=== PATIENT | male | born 1960 | race American Indian/Alaskan Native ===

== ENCOUNTER 2016-11-12 12:32 | Inpatient (IN) | payer BC ==
[2016-11-12 13:31] LABS: Anion Gap 22 mmol/L; BUN/Creatinine Ratio 25.71; Blood Urea Nitrogen 18 mg/dL (9-20); Calcium 9.4 mg/dL (8.4-10.2); Carbon Dioxide 19 mmol/L (22-30); Chloride 103.7 mmol/L (98-107); Glucose 97 mg/dL (75-100); Potassium 3.7 mmol/L (3.6-5.0); Sodium 141 mmol/L (137-145)
[2016-11-12 13:35] LABS: Basophils % (Auto) 0.3 % (0.0-1.8); Eosinophils % (Auto) 0.3 % (0.0-4.3); Hematocrit 47.3 % (35.5-45.6); Hemoglobin 15.6 gm/dl (11.8-15.2); Mean Corpuscular HGB Conc 33 % (32-34); Mean Corpuscular Hemoglobin 31 pg (28-32); Mean Corpuscular Volume 93 fl (84-94); Platelet Count 220 K/mm3 (140-440); Red Blood Count 5.11 M/mm3 (3.65-5.03); Red Cell Distribution Width 14.9 % (13.2-15.2); White Blood Count 5.9 K/mm3 (4.5-11.0)
[2016-11-12 16:42] LABS: Alanine Aminotransferase 15 units/L (7-56); Albumin 4.2 g/dL (3.9-5); Albumin/Globulin Ratio 1.2 %; Alkaline Phosphatase 72 units/L (35-129); Total Protein 7.7 g/dL (6.3-8.2)
[2016-11-12 16:49] LABS: Bilirubin,Direct < 0.2 mg/dL (0-0.2); Bilirubin,Indirect 0.5 mg/dL
[2016-11-12] MEDS ORDERED: MORPHINE IV ONE (17:28)
[2016-11-12] MEDS ORDERED: NITRO-BID 2% TP ONE (17:28)
[2016-11-12] MEDS ORDERED: ZOFRAN IV ONE (17:28)
[2016-11-12] MEDS ORDERED: ASPIRIN PO ONE (17:28)
--- NOTE | 2016-11-12 17:38 | Emergency Department Report ---
HPI - General Chief Complaint: Chest Pain Time Seen by Provider: 11/12/16 17:21 - HPI HPI: Room 3 The patient is a 56-year-old male presenting with a chief complaint of chest pain. Patient states today he developed substernal chest pain described as a pressure in nature. Patient admits to diaphoresis with this chest pain but denies shortness of breath or nausea/vomiting. The patient currently gives his pain a score of 7/10. Patient states his last stress test occurred approximately 1.5 years ago but he has never had a cardiac catheterization Location: Substernal Duration: 1 day Quality: Pressure Severity: 7/10 Modifying factors: [see above] Context: [see above] Mode of transportation: [not driving] ED Past Medical Hx - Past Medical History Previous Medical History?: Yes Hx Hypertension: Yes - Surgical History Past Surgical History?: No - Family History Family history: no significant - Social History Smoking Status: Former Smoker (none 20 years) Substance Use Type: None (denies illicit drug use), Alcohol (occasional) - Medications Home Medications: Home Medications Medication Instructions Recorded Confirmed Last Taken Type No Known Home Medications [No 11/12/16 11/12/16 Unknown History Reported Home Medications] ED Review of Systems ROS: Stated complaint: CHEST PAIN Other details as noted in HPI Comment: All other systems reviewed and negative Constitutional: diaphoresis. denies: chills, fever Eyes: denies: eye pain, eye discharge, vision change ENT: denies: ear pain, throat pain Respiratory: denies: cough, shortness of breath, wheezing Cardiovascular: chest pain Endocrine: no symptoms reported Gastrointestinal: denies: abdominal pain, nausea, diarrhea Genitourinary: denies: urgency, dysuria Musculoskeletal: denies: back pain, joint swelling, arthralgia Skin: denies: rash, lesions Neurological: denies: headache, weakness, paresthesias Psychiatric: denies: anxiety, depression Hematological/Lymphatic: denies: easy bleeding, easy bruising Physical Exam - Physical Exam Vital Signs: Vital Signs 11/12/16 11/12/16 11/12/16 12:48 16:02 16:10 Temperature 98 F Pulse Rate 68 65 59 L Respiratory 18 11 L 13 Rate Blood Pressure 168/102 141/95 Blood Pressure [Right] O2 Sat by Pulse 100 98 98 Oximetry 11/12/16 11/12/16 11/12/16 16:13 16:16 16:20 Temperature Pulse Rate 65 65 Respiratory 18 18 20 Rate Blood Pressure 141/95 Blood Pressure 141/95 [Right] O2 Sat by Pulse 100 100 98 Oximetry 11/12/16 11/12/16 11/12/16 16:30 16:40 16:50 Temperature Pulse Rate 62 61 59 L Respiratory 22 19 22 Rate Blood Pressure 141/95 141/95 141/95 Blood Pressure [Right] O2 Sat by Pulse 96 97 96 Oximetry 11/12/16 11/12/16 11/12/16 17:00 17:10 17:20 Temperature Pulse Rate 68 75 82 Respiratory 18 24 17 Rate Blood Pressure 155/106 155/106 155/106 Blood Pressure [Right] O2 Sat by Pulse 94 99 100 Oximetry Physical Exam: GENERAL: The patient is well-developed well-nourished male lying on stretcher not appearing to be in acute distress. [] HEENT: Normocephalic. Atraumatic. Extraocular motions are intact. Patient has moist mucous membranes. NECK: Supple. Trachea midline CHEST/LUNGS: Clear to auscultation. There is no respiratory distress noted. HEART/CARDIOVASCULAR: Regular. There is no tachycardia. There is no gallop rub or murmur. ABDOMEN: Abdomen is soft, nontender. Patient has normal bowel sounds. There is no abdominal distention. SKIN: There is no rash. There is no edema. There is no diaphoresis. NEURO: The patient is awake, alert, and oriented. The patient is cooperative. The patient has normal speech MUSCULOSKELETAL: There is no evidence of acute injury. ED Course Vital Signs 11/12/16 11/12/16 11/12/16 12:48 16:02 16:10 Temperature 98 F Pulse Rate 68 65 59 L Respiratory 18 11 L 13 Rate Blood Pressure 168/102 141/95 Blood Pressure [Right] O2 Sat by Pulse 100 98 98 Oximetry 11/12/16 11/12/16 11/12/16 16:13 16:16 16:20 Temperature Pulse Rate 65 65 Respiratory 18 18 20 Rate Blood Pressure 141/95 Blood Pressure 141/95 [Right] O2 Sat by Pulse 100 100 98 Oximetry 11/12/16 11/12/16 11/12/16 16:30 16:40 16:50 Temperature Pulse Rate 62 61 59 L Respiratory 22 19 22 Rate Blood Pressure 141/95 141/95 141/95 Blood Pressure [Right] O2 Sat by Pulse 96 97 96 Oximetry 11/12/16 11/12/16 11/12/16 17:00 17:10 17:20 Temperature Pulse Rate 68 75 82 Respiratory 18 24 17 Rate Blood Pressure 155/106 155/106 155/106 Blood Pressure [Right] O2 Sat by Pulse 94 99 100 Oximetry ED Medical Decision Making - Lab Data Result diagrams: 11/12/16 13:00 11/12/16 13:00 Laboratory Tests 11/12/16 11/12/16 11/12/16 13:00 13:00 15:29 WBC 5.9 RBC 5.11 H Hgb 15.6 H Hct 47.3 H MCV 93 MCH 31 MCHC 33 RDW 14.9 Plt Count 220 Lymph % (Auto) 41.4 H [place] % (Auto) 11.2 H Eos % (Auto) 0.3 Baso % (Auto) 0.3 Lymph # 2.4 [place] # 0.7 Eos # 0.0 Baso # 0.0 Seg Neutrophils % 46.8 Seg Neutrophils # 2.8 Sodium 141 Potassium 3.7 Chloride 103.7 Carbon Dioxide 19 L Anion Gap 22 BUN 18 Creatinine 0.7 L Estimated GFR > 60 BUN/Creatinine Ratio 25.71 Glucose 97 Calcium 9.4 Total Bilirubin Direct Bilirubin Indirect Bilirubin AST ALT Alkaline Phosphatase Troponin T < 0.010 < 0.010 Total Protein Albumin Albumin/Globulin Ratio 11/12/16 15:29 WBC RBC Hgb Hct MCV MCH MCHC RDW Plt Count Lymph % (Auto) [place] % (Auto) Eos % (Auto) Baso % (Auto) Lymph # [place] # Eos # Baso # Seg Neutrophils % Seg Neutrophils # Sodium Potassium Chloride Carbon Dioxide Anion Gap BUN Creatinine Estimated GFR BUN/Creatinine Ratio Glucose Calcium Total Bilirubin 0.70 Direct Bilirubin < 0.2 Indirect Bilirubin 0.5 AST 16 ALT 15 Alkaline Phosphatase 72 Troponin T Total Protein 7.7 Albumin 4.2 Albumin/Globulin Ratio 1.2 - EKG Data -: EKG Interpreted by Me EKG shows normal: sinus rhythm Rate: normal - EKG Data When compared to previous EKG there are: previous EKG unavailable Interpretation: nonspecific ST-T wave you (ST depressions in leads V4, V5, V6) - Radiology Data Radiology results: image reviewed (chest x-ray) interpreted by me: Chest x-ray-no focal infiltrates, no pneumothorax - Differential Diagnosis ACS, pericarditis, GERD Critical care attestation.: If time is entered above; I have spent that time in minutes in the direct care of this critically ill patient, excluding procedure time. ED Disposition Clinical Impression: Chest pain Disposition: OP ADMITTED IP TO THIS HOSP Is pt being admited?: Yes Does the pt Need Aspirin: Yes Condition: Fair Instructions: Chest Pain (ED) Referrals: PRIMARY CARE,MD [Primary Care Provider] - 3-5 Days Time of Disposition: 18:09 (hospitalist notified)
[2016-11-12] MEDS ORDERED: MILK OF MAGNESIA PO PRN (18:44)
[2016-11-12] MEDS ORDERED: PERCOCET 5/325 PO PRN (18:44)
[2016-11-12] MEDS ORDERED: DULCOLAX PR PRN (18:44)
[2016-11-12] MEDS ORDERED: DILAUDID IV PRN (18:44)
[2016-11-12] MEDS ORDERED: TYLENOL PO PRN (18:44)
[2016-11-12] MEDS ORDERED: ZOFRAN IV PRN (18:44)
--- NOTE | 2016-11-12 18:44 | Event Note ---
Date: 11/12/16 See H/p in reports
[2016-11-12] MEDS ORDERED: SODIUM CHLORIDE FLUSH SYRINGE 10 ML IV PRN (18:47)
[2016-11-12] MEDS ORDERED: D5NS 1,000 ML IV SCH (19:00)
[2016-11-12] MEDS: COZAAR PO SCH (19:04)
[2016-11-12 20:15] LABS: Creatine Kinase MB 1.6 ng/mL (0.0-4.0)
[2016-11-12 21:32] LABS: Creatine Kinase MB 1.4 ng/mL (0.0-4.0)
[2016-11-12 21:33] LABS: Creatine Kinase 116 units/L (55-170)
--- NOTE | 2016-11-12 22:31 | Admit Criteria Form ---
Admission Criteria Documentation: CARDIOLOGY GRG Clinical Indications for Admission to Inpatient Care ( Place 'X' for any and all applicable criteria): Hospital admission is needed for appropriate care of the patient because of ANY ONE of the following (1): [ ] I. Hemodynamic instability as indicated by ALL of the following (1)(2)(3) (4)(5) [ ]a) Vital signs or other findings not as expected for chronic patient condition or baseline [ ]b) Instability indicated by ANY ONE of the following: [ ]i) Hypotension [ ]ii) Symptomatic Tachycardia unresponsive to treatment ( e.g., analgesia, fluids, sedation as indicated) [ ]iii) Inadequate perfusion indicated by ANY ONE of the following: [ ] 1) Lactic acidosis (> 2 mmol/L) [ ] 2) New abnormal capillary refill (> 3 seconds) [ ] 3) Reduced urine output [ ] 4) New altered mental status [ ]iv) Orthostatic vital sign changes unresponsive to treatment (e.g., fluids) [ ]v) IV inotropic or vasopressor medication required to maintain adequate blood pressure or perfusion [ ] II. Severe heart failure as indicated by ANY ONE of the following(17)(18) [ ]a) Respiratory distress [ ]b) Hypotension [ ]c) Anasarca (refractory to outpatient therapy) [ ]d) Cardiac arrhythmias of immediate concern [ ]e) Myocardial ischemia [ ] III. Cardiac arrhythmias or findings of immediate concern indicated by ANY ONE of the following (19)(20): [ ] a) Heart rhythms that are inherently dangerous or unstable indicated by ANY ONE of the following (21)(22)(23): [ ] i) Resuscitated ventricular fibrillation or cardiac arrest [ ] ii) Ventricular escape rhythm [ ] iii) Sustained ventricular tachycardia (30 seconds or more of ventricular rhythm at greater than 100 beats per minute) [ ] iv) Nonsustained ventricular tachycardia and ANY ONE of the following: [ ] 1) Suspected cardiac ischemia as cause or consequence of ventricular tachycardia [ ] 2) In setting of acute myocarditis [ ] b) Unstable cardiac conduction defects indicated by ANY ONE of the following(23)(24)(25) [ ] i) Type II second-degree atrioventricular block [ ]ii) Third-degree atrioventricular block [ ]iii) New-onset left bundle branch block with suspected myocardial ischemia [ ]c) Any heart rhythm and ANY ONE of the following (21)(22)(26)(27) (28) [ ] i) Continuous long-term ECG monitoring needed (e.g., initiation of drug requiring monitoring for more than 24 hours) [ ] ii) Patient has automatic implanted cardioverter defibrillator that is repeatedly firing, malfunctioning, or in need of immediate adjustment of settings beyond the scope of ambulatory or observation care [ ]d) Heart rhythms of concern due to ANY ONE of the following: [ ] i) Hypotension [ ] ii) Respiratory distress [ ] iii) Association with other significant symptoms (e.g., bradycardia with syncope or ongoing dizziness, supraventricular tachycardia with chest pain (14)(15)(17) [ ] IV. Monitoring for cardiac contusion beyond the scope of observation care needed [A](30)(31)(32) [ ] V. Surgical or device complication (e.g., valve replacement complication , pacemaker dysfunction) (35)(41)(44)(45)(46) [ ] . Inpatient palliative care needed. [B](49) Also use Inpatient Palliative Care Criteria [ ] VII. Nonbacterial thrombotic (marantic) endocarditis (36)(43)(47)(48) [ X] VIII. Cardiology condition, symptom, or finding for which emergency and observation care has failed or are not considered appropriate. [ ] IX. Acute valvular disease requiring inpatient as indicated by ANY ONE of the following (41) [ ]a) Acute valvular regurgitation (42) [ ]b) Noninfectious valvulitis (43) [ ]c) Obstructive valve thrombosis [ ]d) Paravalvular leak [ ]e) Other significant valvular disorder remaining after emergency or observation level of care (as appropriate) [ ]X. Pericardial disease requiring inpatient treatment as indicated by ANY ONE of the following (33)(34)(35)(36)(37) [ ]a) Suspected tamponade (38)(39)(40) [ ]b) Hemopericardium [ ]c) Other significant pericardial disorder remaining after emergency or observation level of care (as appropriate) [ ] XI. Cardiac ischemia beyond scope of emergency and observation care. [ ] XII. Hypertension requiring inpatient treatment as indicated by ANY ONE of the following (6)(7)(8) [ ]a) SBP greater than 220 mm Hg or DBP greater than 120 mmHg despite treatment [ ]b) SBP greater than 140 mm Hg or DBP greater than 100 mm Hg with evidence of acute end organ damage as indicated by ANY ONE of the following [ ] i) Altered mental status [ ] ii) Acute renal failure as indicated by new onset of ANY ONE of the following (9)(10)(11)(12)(13) [ ]1) 3-fold rise in serum creatinine from baseline [ ]2) Serum creatinine greater than 4 mg/dL ( 354 micromoles/L) with acute rise greater than 0.5 mg/dL (44.2 micromoles/L) [ ]3) Reduction of more than 75% in estimated glomerular filtration rate from baseline [ ]4) Estimated glomerular filtration rate less than 35 mL/min/1.73m2 (0.59 mL/sec/1.73m2) in child up to 18 years of age [ ]5) Cessation of urine output indicated by ALL of the following [ ]A. Adequate volume status [ ]B. Inadequate urine output as indicated by ANY ONE of the following [ ]a. Urine output less than 0.3 mL/kg/hr for 24 hours [ ]b. Anuria (urine output less than 0.1 mL/kg/hr) for 12 hours [ ] iii) Aortic dissection [ ] iv) Myocardial Ischemia [ ] v) Left ventricular heart failure [ ]vi) Retinal Hemorrhage [ ]vii) Other significant finding [ ]c) Hypertension in child requiring inpatient treatment as indicated by ALL of the following(14)(15)(16) [ ] i) Outpatient treatment not effective, not available, or not appropriate [ ]ii) SBP or DBP greater than 95th percentile for age [ ]iii) Evidence of acute end organ damage as indicated by ANY ONE of the following [ ]1) Altered mental status [ ]2) Acute renal failure as indicated by new onset of ANY ONE of the following(9)(10)(11)(12)(13) [ ]A. 3-fold rise in serum creatinine from baseline [ ]B. Serum creatinine greater than 4 mg/dL (354 micromoles/L) with acute rise greater than 0.5 mg/dL (44.2 micromoles/L) [ ]C. Reduction of more than 75% in estimated glomerular filtration rate from baseline [ ]D. Estimated glomerular filtration rate less than 35 mL/min/1.73m2 (0.59 mL/sec/1.73m2) in child up to 18 years of age [ ]E. Cessation of urine output indicated by ALL of the following [ ]a. Adequate volume status [ ]b. Inadequate urine output as indicated by ANY ONE of the following [ ]i) Urine output less than 0.3 mL/kg/hr for 24 hours [ ]ii) Anuria ( urine output less than 0.1 mL/kg/hr) for 12 hours [ ]3) Severe headache [ ]4) Visual disturbance [ ]5) Retinal hemorrhage [ ]6) Other significant finding [ ]XIII. Complications of transplanted heart indicated by ANY ONE of the following(61): [ ]a) Acute graft rejection requiring inpatient management (eg, intravenous immunosuppression)(62)(63) [ ]b) Acute graft heart failure indicated by ANY ONE of the following(64): [ ]i) Hemodynamic instability [ ]ii) Cardiac arrhythmias of immediate concern [ ]iii) Pulmonary edema that is very severe (eg, mechanical ventilation needed, imminent or likely, need for 100% oxygen to keep oxygen saturation above 90%) [ ]iv) Pulmonary edema that is persistent as indicated by ALL of the following: [ ]1) New need for oxygen therapy to keep oxygen saturation above 90% (or increased FiO2 need from baseline) [ ]2) Has not improved sufficiently with emergency department or observation care IV diuretics or other heart failure treatments[E] [ ]v) Altered mental status that is severe or persistent [ ]vi) Increased creatinine (new on laboratory test) with reduction of more than 50% in estimated glomerular filtration rate from baseline [ ]vii) Progressively (ongoing) rising creatinine (known from past laboratory test) with reduction of more than 25% in estimated glomerular filtration rate from baseline [ ]viii) Acute renal failure [ ]ix) Acute peripheral ischemia (eg, examination shows pulseless, cool, mottled, or cyanotic extremity) [ ]x) Pulmonary artery catheter monitoring needed [ ]xi) Other sign or symptom of heart failure requiring inpatient treatment (ie, too severe or not responsive to outpatient and observation care treatment) [ ]c) Infection requiring inpatient management (eg, Hemodynamic instability, need for intravenous antimicrobial treatment)(66)(67)(68)(69)(70) [ ]d) Cardiac allograft vasculopathy requiring inpatient management ( eg evidence of cardiac ischemia)(71) [ ]e) Other complication of transplanted heart (eg, stroke, severe pulmonary hypertension, severe valvular dysfunction) requiring inpatient management(72) The original [facility] [employer] content created by [facility] [employer] has been revised. The portions of the content which have been revised are identified through the use of italic text or in bold, and [facility] has neither reviewed nor approved the modified material. All other unmodified content is copyright [facility] [employer]. Please see references footnoted in the original [facility] [employer] edition 2016 Admission Criteria Met: Yes
[2016-11-13 02:00] LABS: Creatine Kinase MB 1.5 ng/mL (0.0-4.0)
[2016-11-13 02:03] LABS: Creatine Kinase 110 units/L (55-170)
[2016-11-13 05:38] LABS: Basophils % (Auto) 0.2 % (0.0-1.8); Eosinophils % (Auto) 1.4 % (0.0-4.3); Hematocrit 40.8 % (35.5-45.6); Hemoglobin 13.5 gm/dl (11.8-15.2); Mean Corpuscular HGB Conc 33 % (32-34); Mean Corpuscular Hemoglobin 31 pg (28-32); Mean Corpuscular Volume 93 fl (84-94); Platelet Count 192 K/mm3 (140-440); Red Blood Count 4.37 M/mm3 (3.65-5.03); Red Cell Distribution Width 15.1 % (13.2-15.2); White Blood Count 4.8 K/mm3 (4.5-11.0)
[2016-11-13 05:50] LABS: Alanine Aminotransferase 13 units/L (7-56); Albumin 3.3 g/dL (3.9-5); Albumin/Globulin Ratio 1.1 %; Alkaline Phosphatase 70 units/L (35-129); Anion Gap 19 mmol/L; Blood Urea Nitrogen 18 mg/dL (9-20); Calcium 8.7 mg/dL (8.4-10.2); Carbon Dioxide 23 mmol/L (22-30); Chloride 102.3 mmol/L (98-107); Glucose 108 mg/dL (75-100); Potassium 3.5 mmol/L (3.6-5.0); Sodium 141 mmol/L (137-145); Total Protein 6.2 g/dL (6.3-8.2)
--- NOTE | 2016-11-13 06:33 | History and Physical Report ---
CHIEF COMPLAINT: Left-sided chest pain for 1 day. HISTORY OF PRESENT ILLNESS: A 56-year-old male comes in for left-sided chest pain, substernal chest pain. Pain is about 7/10. No radiation. Denies any shortness of breath, nausea, vomiting, or diaphoresis. He had a stress test about 1-1/2 years ago, now had a cardiac cath. Sharp in nature. Severity is 7/10. Occasionally pressure like sensation. No exacerbating or relieving factors. PAST MEDICAL HISTORY: Significant for hypertension. PAST SURGICAL HISTORY: None. FAMILY HISTORY: Hypertension. SOCIAL HISTORY: Former smoker, did not smoke for the last 20 years. Alcohol occasionally. No drugs. CURRENT MEDICATIONS: None. REVIEW OF SYSTEMS: Other than the left-sided chest pain, review of systems is negative. A 14-point review of systems is done. ____ are negative other than the left-sided chest pain. PHYSICAL EXAMINATION: GENERAL: Middle-aged male, cooperative during examination. VITAL SIGNS: Temperature is 98, pulse is 68, respiratory rate is 19, and blood pressure is 168/102. HEENT: Unremarkable. Pupils are equal and reactive. NECK: Supple, no lymphadenopathy, no thyromegaly. LUNGS: Clear to auscultation and percussion. Good air entry. CARDIOVASCULAR: S1, S2 heard. No gallop, no murmur, and no rub. Apical impulse in left fifth intercostal space and midclavicular line. ABDOMEN: Soft and benign. No hepatosplenomegaly. No guarding, no rigidity. Hernial orifices are normal. EXTREMITIES: Good pedal pulses. No pedal edema. CENTRAL NERVOUS SYSTEM: Alert and oriented x 4, nonfocal exam. SKIN: Normal. LABORATORY DATA: White count is 5900, hemoglobin is 15.6, hematocrit is 47.3, and platelet count is 220,000. Sodium is 141, potassium is 3.7, chloride is 103, bicarbonate is 19, BUN and creatinine are 18 and 0.7, and glucose is 97. IMAGING: EKG shows normal sinus rhythm, nonspecific ST-T wave changes and ST depression in lead V4, V5, and V6. Chest x-ray, no focal infiltrates. ASSESSMENT AND PLAN: 1. Acute coronary syndrome, chest pain protocol. Get serial cardiac enzymes and rule out ischemia. Lexiscan in the morning with ____, which is application support technician. 2. Hypertension, uncontrolled. The patient is not on any medications. Losartan 100 mg daily added. The patient was discharged on losartan 100 mg daily. 3. Deep venous thrombosis prophylaxis, Lovenox 40 mg subcutaneously daily. JOB# [id number] VSM/NTS
[2016-11-13] MEDS ORDERED: LEXISCAN IV ONE ×2 (07:59→08:08)
[2016-11-13 08:43] VITALS: BP 131/74
--- NOTE | 2016-11-13 08:43 | XRay Report ---
AP CHEST: HISTORY: chest pain AP view of the chest demonstrates a normal mediastinal and cardiac contour with clear lungs and normal bony and soft tissue structures. IMPRESSION: Unremarkable AP chest.
[2016-11-13] MEDS ORDERED: LOVENOX SUB-Q SCH ×2 (10:00→22:00)
[2016-11-13] MEDS: COZAAR PO SCH (10:18)
[2016-11-13] MEDS ORDERED: K-DUR PO ONE (10:20)
--- NOTE | 2016-11-13 10:21 | Discharge Summary ---
Providers - Providers Date of Admission: 11/12/16 18:55 Attending physician: TOBIAS ALBA MD Primary care physician: YO ZIEGLER MD Hospitalization Condition: Stable Hospital course: 56-year-old man with previous history of hypertension who presented with left- sided chest pain. ACS was ruled out by negative troponins. He wanted to have a nuclear stress test that was negative. Pain resolved, chest pain was thought to be due to costochondritis and/or accelerated hypertension. 4 elevated blood pressures medication optimized with improvement in his blood pressure, he was noted to be hypokalemic and was repleted Discharge diagnoses Chest pain due to costochondritis Accelerated hypertension Hypokalemia Disposition: DISCHARGED TO HOME OR SELFCARE Time spent for discharge: 35 minutes Core Measure Documentation - Palliative Care Palliative Care/ Comfort Measures: Not Applicable - Core Measures Any of the following diagnoses?: none Exam - Constitutional Vitals: Temp Pulse Resp BP Pulse Ox 98.8 F 60 18 131/74 97 11/13/16 08:42 11/13/16 10:18 11/13/16 08:42 11/13/16 10:18 11/13/16 08:42 General appearance: Present: no acute distress, well-nourished - EENT Eyes: Present: PERRL ENT: hearing intact, clear oral mucosa - Neck Neck: Present: supple, normal ROM - Respiratory Respiratory effort: normal Respiratory: bilateral: CTA - Cardiovascular Heart Sounds: Present: S1 & S2. Absent: rub, click - Extremities Extremities: pulses symmetrical, No edema Peripheral Pulses: within normal limits - Abdominal General gastrointestinal: Present: soft, non-tender, non-distended, normal bowel sounds Male genitourinary: Present: normal - Integumentary Integumentary: Present: clear, warm, dry - Musculoskeletal Musculoskeletal: gait normal, strength equal bilaterally - Psychiatric Psychiatric: appropriate mood/affect, intact judgment & insight - Neurologic Neurologic: CNII-XII intact, moves all extremities Plan Follow up with: PRIMARY CARE, [Primary Care Provider] - 3-5 Days Prescriptions: Losartan [Cozaar] 100 mg PO QDAY #60 tablet
--- NOTE | 2016-11-15 22:11 | Treadmill Report ---
STRESS TEST INDICATION: Chest pain. ORDERING PHYSICIAN: Sunita Garcia M.D. FINDINGS: There is no scintigraphic evidence of myocardial ischemia. The left ventricle is normal in size and systolic function. The left ventricular ejection fraction is measured at 52%. Normal wall motion and wall thickening is noted on gated imaging. CONCLUSION: Normal perfusion scan. JOB# [id number] RADHA/MECHELLE
== END 2016-11-13 12:10 | disposition home or self-care (01) | DRG 206 ==
LOC: ED 12:32 → 4A 18:55
PROVIDERS: ADMIT Internal Medicine; ATTEND Internal Medicine
DX: M94.0 Chondrocostal junction syndrome [Tietze] (principal); I10 Essential (primary) hypertension; E87.6 Hypokalemia; Z88.0 Allergy status to penicillin; Z82.49 Family history of ischemic heart disease and other diseases of the circulatory system; Z87.891 Personal history of nicotine dependence
CPT/HCPCS: 36415; 71010; 78452; 80048; 80053; 80074; 82550; 82553; 84484; 85025; 93005; 93010; 93017; 96374; 96375; A9502; J2270; J2405; J2785; J7042

== ENCOUNTER 2017-01-01 17:05 | Emergency (ER) | payer BC ==
--- NOTE | 2017-01-01 17:26 | Emergency Department Report ---
Chief Complaint: Fall Stated Complaint: CHEST PAIN Time Seen by Provider: 01/01/17 17:23 - HPI History of Present Illness: pt states he has had tejada since fall 1 week ago PT also states he is having cp x 2 years - ROS Review of Systems: + tejada + chest pain - Exam Vital Signs: Vital Signs 01/01/17 17:11 Temperature 98.5 F Pulse Rate 72 Respiratory 18 Rate Blood Pressure 99/59 O2 Sat by Pulse 100 Oximetry Physical Exam: pt alert and appropriate in triage gcs 15 MSE screening note: Focused history and physical exam performed. Due to findings the following was ordered: ekg, xr, ct, labs ED Disposition for MSE Condition: Stable
[2017-01-01 17:42] LABS: Basophils % (Auto) 0.5 % (0.0-1.8); Eosinophils % (Auto) 0.9 % (0.0-4.3); Hematocrit 43.7 % (35.5-45.6); Hemoglobin 14.9 gm/dl (11.8-15.2); Mean Corpuscular HGB Conc 34 % (32-34); Mean Corpuscular Hemoglobin 31 pg (28-32); Mean Corpuscular Volume 91 fl (84-94); Platelet Count 243 K/mm3 (140-440); Red Cell Distribution Width 14.4 % (13.2-15.2); White Blood Count 4.4 K/mm3 (4.5-11.0)
[2017-01-01 18:03] LABS: Alanine Aminotransferase 13 units/L (7-56); Albumin 3.9 g/dL (3.9-5); Albumin/Globulin Ratio 1.1 %; Alkaline Phosphatase 71 units/L (35-129); Anion Gap 19 mmol/L; Blood Urea Nitrogen 26 mg/dL (9-20); Carbon Dioxide 19 mmol/L (22-30); Chloride 94.2 mmol/L (98-107); Glucose 96 mg/dL (75-100); Potassium 3.8 mmol/L (3.6-5.0); Sodium 128 mmol/L (137-145); Total Protein 7.5 g/dL (6.3-8.2)
--- NOTE | 2017-01-01 18:12 | Cat Scan Report ---
FINAL REPORT EXAM: CT HEAD/BRAIN WO CON HISTORY: pain since fall TECHNIQUE: Standard unenhanced CT of the head at 5.0 millimeter axial increments. PRIORS: None. FINDINGS: The ventricular system is normal in size and configuration. There is no evidence for parenchymal volume loss. There is no evidence for mass lesion, mass effect, midline shift, acute intracranial hemorrhage, or acute ischemia/ infarction. No evidence for acute skull fracture is seen. No abnormality in the overlying scalp soft tissues is seen. Visualized paranasal sinuses are clear. IMPRESSION: Negative CT of the head. No acute intracranial process noted.
[2017-01-02] MEDS ORDERED: MOTRIN PO ONE (07:24)
[2017-01-02] MEDS ORDERED: NORCO 5/325 PO ONE (07:24)
--- NOTE | 2017-01-02 07:28 | Emergency Department Report ---
HPI - General Chief Complaint: Fall Time Seen by Provider: 01/01/17 17:23 - HPI HPI: Room 5 The patient is a 56-year-old male presenting with chief complaint of fall. Patient states she came to the hospital for evaluation of pain that began after a fall one week ago. The patient states 1 week ago he was in the shower and slipped and fell backwards open his head. Patient states he tried to break his fall with his hands. Patient denies loss of consciousness during this fall. The patient states 2 days later he developed headache and bilateral wrist pain. Patient also states for the past 1-2 years he has had intermittent substernal chest pain. The patient was admitted to this hospital approximately 1.5 months ago for chest pain and underwent a stress test which was negative. Location: [see above] Duration: One week, see above Quality: Pain Severity: Moderate Modifying factors: [see above] Context: [see above] Mode of transportation: [not driving] ED Past Medical Hx - Past Medical History Previous Medical History?: Yes Hx Hypertension: Yes (no medicine) - Surgical History Past Surgical History?: No - Family History Family history: no significant - Social History Smoking Status: Former Smoker (none 15-20 years) Substance Use Type: None (denies illicit drug use), Alcohol - Medications Home Medications: Home Medications Medication Instructions Recorded Confirmed Last Taken Type Losartan [Cozaar] 100 mg PO QDAY #60 tablet 01/02/17 Unknown Rx traMADol [Ultram] 50 mg PO Q6HR PRN #14 tablet 01/02/17 Unknown Rx ED Review of Systems ROS: Stated complaint: CHEST PAIN Other details as noted in HPI Comment: All other systems reviewed and negative Constitutional: diaphoresis Eyes: denies: eye pain, eye discharge, vision change ENT: denies: ear pain, throat pain Respiratory: shortness of breath Cardiovascular: chest pain Endocrine: no symptoms reported Gastrointestinal: denies: nausea, vomiting Musculoskeletal: arthralgia, myalgia Skin: denies: rash, lesions Neurological: headache Psychiatric: denies: anxiety, depression Hematological/Lymphatic: denies: easy bleeding, easy bruising Physical Exam - Physical Exam Vital Signs: Vital Signs 01/01/17 01/02/17 01/02/17 17:11 00:27 03:29 Temperature 98.5 F 97.2 F L Pulse Rate 72 68 66 Respiratory 18 16 21 Rate Blood Pressure 99/59 156/90 Blood Pressure 137/79 [Right] O2 Sat by Pulse 100 97 100 Oximetry 01/02/17 01/02/17 05:22 06:45 Temperature Pulse Rate 64 67 Respiratory 14 13 Rate Blood Pressure Blood Pressure 136/67 96/48 [Right] O2 Sat by Pulse 96 99 Oximetry Physical Exam: GENERAL: The patient is well-developed well-nourished male sleeping on stretcher not appearing to be in acute distress. Patient easily awakened HEENT: Normocephalic. Atraumatic. Extraocular motions are intact. Patient has moist mucous membranes. NECK: Supple. Trachea midline CHEST/LUNGS: Clear to auscultation. There is no respiratory distress noted. HEART/CARDIOVASCULAR: Regular. There is no tachycardia. There is no gallop rub or murmur. ABDOMEN: Abdomen is soft, nontender. Patient has normal bowel sounds. There is no abdominal distention. SKIN: There is no rash. There is no edema. There is no diaphoresis. NEURO: The patient is awake, alert, and oriented. The patient is cooperative. The patient has no focal neurologic deficits. The patient has normal speech. Cranial nerves II through XII grossly intact. 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 Diffuse tenderness palpation of the right wrist. There is no limitation range of motion. There is no evidence of acute injury. ED Course Vital Signs 01/01/17 01/02/17 01/02/17 17:11 00:27 03:29 Temperature 98.5 F 97.2 F L Pulse Rate 72 68 66 Respiratory 18 16 21 Rate Blood Pressure 99/59 156/90 Blood Pressure 137/79 [Right] O2 Sat by Pulse 100 97 100 Oximetry 01/02/17 01/02/17 05:22 06:45 Temperature Pulse Rate 64 67 Respiratory 14 13 Rate Blood Pressure Blood Pressure 136/67 96/48 [Right] O2 Sat by Pulse 96 99 Oximetry ED Medical Decision Making - Lab Data Result diagrams: 01/01/17 17:29 01/01/17 17:29 Laboratory Tests 01/01/17 01/01/17 01/02/17 17:29 17:29 07:20 WBC 4.4 L RBC 4.80 Hgb 14.9 Hct 43.7 MCV 91 MCH 31 MCHC 34 RDW 14.4 Plt Count 243 Lymph % (Auto) 42.3 H [place] % (Auto) 10.5 H Eos % (Auto) 0.9 Baso % (Auto) 0.5 Lymph # 1.9 [place] # 0.5 Eos # 0.0 Baso # 0.0 Seg Neutrophils % 45.8 Seg Neutrophils # 2.0 Sodium 128 L Potassium 3.8 Chloride 94.2 L Carbon Dioxide 19 L Anion Gap 19 BUN 26 H Creatinine 0.8 Estimated GFR > 60 BUN/Creatinine Ratio 32.50 Glucose 96 Calcium 9.0 Total Bilirubin 0.40 AST 15 ALT 13 Alkaline Phosphatase 71 Total Creatine Kinase 97 CK-MB (CK-2) 1.4 CK-MB (CK-2) Rel Index 1.4 Troponin T < 0.010 < 0.010 Total Protein 7.5 Albumin 3.9 Albumin/Globulin Ratio 1.1 - EKG Data -: EKG Interpreted by Me EKG shows normal: sinus rhythm Rate: normal - EKG Data When compared to previous EKG there are: no significant change Interpretation: unchanged when compared t (11/13/2016) - Radiology Data Radiology results: report reviewed (CT head), image reviewed (CT head, chest x- ray, bilateral wrist x-ray) interpreted by me: Chest x-ray-no focal infiltrates, no pneumothorax Bilateral wrist x-ray-no acute fractures CT head (read by radiologist)-negative CT of the head. No acute intracranial process noted. Bilateral wrist x-rays (read by radiologist)-degenerative changes. No acute bony injury is appreciated - Differential Diagnosis ICH, closed head injury, distal radius fracture, ACS Critical care attestation.: If time is entered above; I have spent that time in minutes in the direct care of this critically ill patient, excluding procedure time. ED Disposition Clinical Impression: Closed head injury, Strain of wrist, bilateral, Atypical chest pain Disposition: DC-01 TO HOME OR SELFCARE Is pt being admited?: No Does the pt Need Aspirin: No Condition: Stable Instructions: Chest Pain (ED) Additional Instructions: Return to the emergency department immediately should you develop worsening symptoms, fever, inability to tolerate food or liquid or any other concerns. Prescriptions: Losartan [Cozaar] 100 mg PO QDAY #60 tablet traMADol [Ultram] 50 mg PO Q6HR PRN #14 tablet PRN Reason: Pain Referrals: ROSI ELENA MD [Staff Physician] - 3-5 Days Time of Disposition: 08:10
--- NOTE | 2017-01-02 07:39 | XRay Report ---
ROUTINE CHEST, TWO VIEWS: HISTORY: chest pain. The trachea, heart, mediastinal contour, lung contreras and bony thorax are unremarkable. IMPRESSION: Unremarkable chest x-ray.
[2017-01-02 07:50] LABS: Creatine Kinase MB 1.4 ng/mL (0.0-4.0)
[2017-01-02 07:54] LABS: Creatine Kinase 97 units/L (55-170)
--- NOTE | 2017-01-02 07:57 | XRay Report ---
BILATERAL WRISTS, 2 VIEWS History: Bilateral wrist pain after fall. Findings: There is normal bone mineralization. Mild osteoarthritic changes are identified bilaterally. The right wrist is slightly more affected. No evidence for displaced fracture, dislocation or ligamentous injury. Impression: Degenerative changes. No acute bony injury is appreciated.
[2017-01-02 08:27] VITALS: BP 97/44
== END 2017-01-02 08:43 | disposition home or self-care (01) ==
LOC: ED 17:05
DX: S09.90XA Unspecified injury of head, initial encounter (principal); S66.912A Strain of unspecified muscle, fascia and tendon at wrist and hand level, left hand, initial encounter; S66.911A Strain of unspecified muscle, fascia and tendon at wrist and hand level, right hand, initial encounter; R07.89 Other chest pain; I10 Essential (primary) hypertension; Z87.891 Personal history of nicotine dependence; W01.0XXA Fall on same level from slipping, tripping and stumbling without subsequent striking against object, initial encounter; Y93.E1 Activity, personal bathing and showering; Y92.091 Bathroom in other non-institutional residence as the place of occurrence of the external cause; Y99.8 Other external cause status
CPT/HCPCS: 36415; 70450; 71020; 80053; 82550; 82553; 84484; 85025; 93005; 93010

== ENCOUNTER 2017-01-12 17:14 | Outpatient (CLI) | payer BC ==
[2017-01-12] MEDS ORDERED: NACL ONE (18:43)
--- NOTE | 2017-01-12 20:02 | Cat Scan Report ---
FINAL REPORT EXAM: CT ABDOMEN W CON HISTORY: abnormal levels of other serum enzymes epigastic pain TECHNIQUE: CT abdomen with oral and intravenous contrast Pelvis was not included in the exam. PRIORS: None. FINDINGS: No acute abnormality identified in the visualized lung bases. No focal abnormality seen within the liver parenchyma. Gallbladder is nondistended. Spleen is normal in size and attenuation. The pancreas demonstrates no focal abnormality. No adjacent inflammatory changes are observed. Noted is 1 centimeter upper pole left renal cyst. Kidneys demonstrate symmetric contrast enhancement without evidence for hydronephrosis. Visualized portions of the colon and small bowel are unremarkable. IMPRESSION: Left renal cyst Otherwise negative study
== END 2017-01-12 17:15 | disposition home or self-care (01) ==
LOC: CT 17:14
PROVIDERS: ATTEND Internal Medicine
DX: N28.1 Cyst of kidney, acquired (principal); R94.5 Abnormal results of liver function studies; R74.8 Abnormal levels of other serum enzymes; Z87.891 Personal history of nicotine dependence
CPT/HCPCS: 74160; Q9967

== ENCOUNTER 2019-07-31 19:05 | Emergency (ER) | payer SELFPAY ==
[2019-07-31 19:22] VITALS: BP 173/104
--- NOTE | 2019-07-31 20:29 | Emergency Department Report ---
Blank Doc - Documentation Documentation: 59-year-old male that presents with right shoulder pain after injury at work. This initial assessment/diagnostic orders/clinical plan/treatment(s) is/are subject to change based on patient's health status, clinical progression and re- assessment by fellow clinical providers in the ED. Further treatment and workup at subsequent clinical providers discretion. Patient/guardians urged not to elope from the ED as their condition may be serious if not clinically assessed and managed. Initial orders include: 1- Patient sent to [facility] for further evaluation and treatment 2- xrays
--- NOTE | 2019-07-31 21:06 | XRay Report ---
Right shoulder-3 views INDICATION: shoulder pain. COMPARISON: None. IMPRESSION: No acute osseous or soft tissue abnormality. Moderate a.c. and mild glenohumeral DJD. Signer Name: Caleb Cantrell MD Signed: 07/31/2019 9:02 PM Workstation Name: [id number]
[2019-07-31] MEDS ORDERED: ONDANSETRON 4 MG ODT TAB PO ONE (21:59)
[2019-07-31] MEDS ORDERED: IBUPROFEN 600 MG TAB PO ONE (21:59)
[2019-07-31] MEDS ORDERED: predniSONE 20 MG TAB PO ONE (21:59)
[2019-07-31] MEDS ORDERED: oxyCODONE /ACETAMINOPHEN 5-325MG TAB PO ONE (21:59)
--- NOTE | 2019-07-31 22:50 | Emergency Department Report ---
ED Upper Extremity Inj HPI - General Chief Complaint: Extremity Injury, Upper Stated Complaint: SHOULDER AND ARM PAIN NUMBNESS W/TINGLING Time Seen by Provider: 07/31/19 20:28 Source: patient Mode of arrival: Ambulatory Limitations: No Limitations - History of Present Illness Initial Comments: Patient is a 59-year-old -[place] male with a history of hypertension who presents to the ED with complaint of acute onset persistent severe right shoulder pain after he accidentally hit it against a hard wall 2 months ago at work while lifting heavy objects. Patient states that the pain has been persistent and has been getting worse especially in the last 2 days. Patient states that he is unable to perform any active range of motion of the right shoulder and arm because of severe pain. Patient denies fall, numbness and tingling or weakness of right arm, neck pain, chest pain, shortness of breath, headache, change in vision, nausea and vomiting or back pain. MD Complaint: Injury to:: right, shoulder -: Sudden Other Extremity Injury: Shoulder: Right (pain) Other Injuries: none Handedness: right Place: work Severity scale (0 -10): 7 Improves With: none Worsens With: movement of extremity Context: direct blow, injury Associated Symptoms: denies other symptoms. denies: weakness, numbness, neck pain, suspects foreign body, nausea/vomiting, heard/felt popping sensat - Related Data Previous Rx's Medication Instructions Recorded Last Taken Type Losartan [Cozaar] 100 mg PO QDAY #60 tablet 01/02/17 Unknown Rx Naproxen 500 mg PO Q12H PRN #30 tablet 07/31/19 Unknown Rx predniSONE [Deltasone] 40 mg PO QDAY #10 tab 07/31/19 Unknown Rx tiZANidine [Zanaflex 4mg TAB] 4 mg PO Q8H PRN #21 tablet 07/31/19 Unknown Rx traMADoL [Ultram 50 MG tab] 50 mg PO Q6HR PRN #12 tablet 07/31/19 Unknown Rx Allergies Allergy/AdvReac Type Severity Reaction Status Date / Time Penicillins Allergy Unknown Verified 11/13/16 06:30 ED Review of Systems ROS: Stated complaint: SHOULDER AND ARM PAIN NUMBNESS W/TINGLING Other details as noted in HPI Constitutional: denies: chills, fever Eyes: denies: eye pain, eye discharge, vision change ENT: denies: ear pain, throat pain Respiratory: denies: cough, shortness of breath, wheezing Cardiovascular: denies: chest pain, palpitations Endocrine: no symptoms reported Gastrointestinal: denies: abdominal pain, nausea, diarrhea Genitourinary: denies: urgency, dysuria Musculoskeletal: arthralgia (right shoulder pain), myalgia. denies: back pain, joint swelling Skin: denies: rash, lesions Neurological: denies: headache, weakness, paresthesias Psychiatric: denies: anxiety, depression Hematological/Lymphatic: denies: easy bleeding, easy bruising ED Past Medical Hx - Past Medical History Hx Hypertension: Yes (no medicine) Additional medical history: chronic back pain - Surgical History Hx Open Heart Surgery: Yes - Social History Smoking Status: Never Smoker Substance Use Type: Alcohol - Medications Home Medications: Home Medications Medication Instructions Recorded Confirmed Last Taken Type Losartan [Cozaar] 100 mg PO QDAY #60 tablet 01/02/17 Unknown Rx Naproxen 500 mg PO Q12H PRN #30 tablet 07/31/19 Unknown Rx predniSONE [Deltasone] 40 mg PO QDAY #10 tab 07/31/19 Unknown Rx tiZANidine [Zanaflex 4mg TAB] 4 mg PO Q8H PRN #21 tablet 07/31/19 Unknown Rx traMADoL [Ultram 50 MG tab] 50 mg PO Q6HR PRN #12 tablet 07/31/19 Unknown Rx ED Physical Exam - General Limitations: No Limitations General appearance: alert, in no apparent distress - Head Head exam: Present: atraumatic, normocephalic, normal inspection - Eye Eye exam: Present: normal appearance, PERRL, EOMI Pupils: Present: normal accommodation - ENT ENT exam: Present: normal exam, normal orophraynx, mucous membranes moist, TM's normal bilaterally, normal external ear exam - Neck Neck exam: Present: normal inspection, full ROM - Respiratory Respiratory exam: Present: normal lung sounds bilaterally. Absent: respiratory distress, wheezes, rales, rhonchi, chest wall tenderness, accessory muscle use, decreased breath sounds - Cardiovascular Cardiovascular Exam: Present: regular rate, normal rhythm, normal heart sounds. Absent: systolic murmur, diastolic murmur, rubs, gallop - GI/Abdominal GI/Abdominal exam: Present: soft, normal bowel sounds. Absent: tenderness, guarding, hyperactive bowel sounds, hypoactive bowel sounds, organomegaly - Rectal Rectal exam: Present: deferred - Extremities Exam Extremities exam: Present: normal inspection, full ROM, tenderness (Palpable r ight shoulder tenderness with limited range of motion due to pain), normal capillary refill - Back Exam Back exam: Present: normal inspection, full ROM. Absent: tenderness, CVA tenderness (L), muscle spasm, paraspinal tenderness - Neurological Exam Neurological exam: Present: alert, oriented X3, CN II-XII intact, normal gait, reflexes normal - Psychiatric Psychiatric exam: Present: normal affect, normal mood - Skin Skin exam: Present: warm, dry, intact, normal color. Absent: rash ED Course Vital Signs 07/31/19 19:17 Temperature 98.0 F Pulse Rate 82 Respiratory 18 Rate Blood Pressure 173/104 O2 Sat by Pulse 97 Oximetry ED Medical Decision Making - Radiology Data Radiology results: report reviewed, image reviewed The right shoulder x-ray shows no acute fractures or subluxations but moderate AC and mild glenohumeral joint degenerative joint disease. - Medical Decision Making This is a 59-year-old male who presented to the ED with right shoulder pain persistently for 2 months after he accidentally hit his right shoulder against a wall while lifting heavy objects at work. Patient stated that the pain has been progressively getting worse especially the last 2 days. In the ED, patient is alert and oriented x3 and is not in any distress but appears to be in pain. Patient was treated for pain in the ED and the right shoulder x-ray shows no acute fractures or subluxations but moderate degenerative joint disease in the AC joint and mild degenerative joint disease in the glenohumeral joint. On reevaluation, patient's pain is well controlled with medications. Patient was discharged home on pain medications and advised follow-up with his primary care physician in 7 to 10 days for reevaluation or return to the ED immediately if symptoms get worse. - Differential Diagnosis shoulder injury; Osteoarthritis; Bursitis; Tendonitis; shoulder fracture Critical care attestation.: If time is entered above; I have spent that time in minutes in the direct care of this critically ill patient, excluding procedure time. ED Disposition Clinical Impression: Right shoulder pain Qualifiers: Chronicity: acute Qualified Code(s): M25.511 - Pain in right shoulder Muscle strain of right shoulder region Qualifiers: Encounter type: initial encounter Qualified Code(s): S46.911A - Strain of unspecified muscle, fascia and tendon at shoulder and upper arm level, right arm, initial encounter DJD of right shoulder Qualifiers: Osteoarthritis type: primary Qualified Code(s): M19.011 - Primary osteoarthritis, right shoulder Disposition: TO HOME OR SELFCARE Is pt being admited?: No Does the pt Need Aspirin: No Condition: Stable Instructions: Muscle Strain (ED), Shoulder Sprain (ED), Osteoarthritis (ED) Additional Instructions: The right shoulder x-ray shows no fractures or dislocations, but degenerative joselin int disease. Take medication with food, drink plenty of fluids and follow-up with your primary care physician in 5 to 7 days for reevaluation. Return to the ED immediately if symptoms get worse. Prescriptions: predniSONE [Deltasone] 40 mg PO QDAY #10 tab Naproxen 500 mg PO Q12H PRN #30 tablet PRN Reason: Pain , Severe (7-10) traMADoL [Ultram 50 MG tab] 50 mg PO Q6HR PRN #12 tablet PRN Reason: Pain tiZANidine [Zanaflex 4mg TAB] 4 mg PO Q8H PRN #21 tablet PRN Reason: Muscle Spasm Referrals: [facility] [Outside] - 7-10 days Forms: Work/School Release Form(ED) Time of Disposition: 22:53 Print Language: KYRGYZ
== END 2019-07-31 23:12 | disposition home or self-care (01) ==
LOC: ED 19:05
DX: S46.911A Strain of unspecified muscle, fascia and tendon at shoulder and upper arm level, right arm, initial encounter (principal); M19.011 Primary osteoarthritis, right shoulder; I10 Essential (primary) hypertension; X50.0XXA Overexertion from strenuous movement or load, initial encounter; Y93.89 Activity, other specified; Y92.89 Other specified places as the place of occurrence of the external cause; Y99.8 Other external cause status
CPT/HCPCS: 73030; 99283; J7512; Q0162

== ENCOUNTER 2019-09-05 14:43 | Emergency (ER) | payer SELFPAY ==
--- NOTE | 2019-09-05 16:17 | Event Note ---
ED Screening Note Date of service: 09/05/19 Time: 16:16 ED Screening Note: This is a 59 y.o. M. that presents to the ER with right shoulder and low back pain for 1 month. Work injury, seen in ER with no follow up. PMH of HTN Denies CP, SOB, or visual changes This initial assessment/diagnostic orders/clinical plan/treatment(s) is/are subject to change based on patients health status, clinical progression and re- assessment by fellow clinical providers in the ED. Further treatment and workup at subsequent clinical providers discretion. Patient/guardian urged not to elope from the ED as their condition may be serious if not clinically assessed and managed. Initial orders include:
--- NOTE | 2019-09-05 18:34 | Emergency Department Report ---
Chief Complaint: Back Pain/Injury Stated Complaint: BACK PAIN Time Seen by Provider: 09/05/19 16:14 - HPI History of Present Illness: Patient is a 59-year-old male presents emergency room with complaints of right shoulder and lower back pain for 3 months. He states he had an injury to his shoulder 3 months ago and was seen in the emergency department at that time and had a x-ray with no acute findings, showed No acute osseous or soft tissue abnormality. Moderate a.c. and mild glenohumeral DJD. He denies any acute injury or fall. He denies any numbness, weakness, bowel or bladder incontinence, headache, chest pain, numbness, weakness. He states that he does heavy lifting and has to walk up the stairs frequently at work and he believes this exacerbates his symptoms. Patient did not follow-up with anyone after he was seen in the emergency department on 07/31/2019. Patient has a past medical history of hypertension and states he did not take his blood pressure medications for 2 days. He states that he does have plenty of pills at home. He denies any symptoms at all related to his blood pressure. Vitals with elevated blood pressure secondary to patient not taking his blood pressure medication Patient is asymptomatic, he does have his prescriptions at home and states he just did not take it on repeat of his blood pressure it is 236/138, advised pt that we would need to give him his home medications to lower his blood pressure due to this being hy pertensive urgency level and obtain screening laboratory testing, pt declined and states that he wants to take his medication at home and will follow up with his PCP, advised pt he would need to sign out AMA, discussed he was leaving without full evaluation and treatment, and discussed risks associated with elevated blood pressure of this level, he verbalized understanding on exam: Non toxic appearing, no acute distress atraumatic, normocephalic normal appearance of the eyes, EOMI, no periorbital edema or ecchymosis moist mucus membranes regular heart rate and rhythm, no gallops, no rubs, no murmurs breath sounds are clear bilaterally, no w/r/r No midline spinal or paraspinal C-spine, T-spine, L-spine tenderness to palpation, no step-offs, no deformities No bony tenderness to palpation of the right shoulder, full range of motion of the right shoulder with discomfort upon flexion and adduction, no sulcus sign, clavicles are equal, no clavicular ttp, no AC joint ttp, no obvious joint l axity, neurovascularly intact A&O x4, no focal neuro deficit skin is warm, dry, intact The patient is alert and oriented x3. The patient exhibits decision-making capacity. The patient is free from distracting injury. The risk of leaving without a complete medical examination, and AGAINST MEDICAL ADVICE, were explained to the patient, and they included , disability, paralysis, permanent loss of quality of life. Patient verbalized understanding to these and was able to articulate these risk in their own words, this conversation was witnessed by Clint EMT - Exam Vital Signs: Vital Signs 09/05/19 09/05/19 15:04 16:14 Temperature 98.1 F 98.1 F Pulse Rate 82 82 Respiratory 20 Rate Blood Pressure 199/121 199/121 O2 Sat by Pulse 96 97 Oximetry MSE screening note: Focused history and physical exam performed. Due to findings the following was ordered: ED Medical Decision Making - Radiology Data Radiology results: report reviewed Right shoulder-3 views INDICATION: shoulder pain. COMPARISON: None. IMPRESSION: No acute osseous or soft tissue abnormality. Moderate a.c. and mild glenohumeral DJD. Signer Name: Caleb Cantrell MD Signed: 07/31/2019 9:02 PM Workstation Name: [id number] Transcribed By: BRAN Dictated By: Caleb Cantrell MD Electronically Authenticated By: Caleb Cantrell MD Signed Date/Time: 07/31/192101 DD/ 01 TD/TT: ED Disposition for MSE Clinical Impression: Hypertensive urgency Right shoulder pain Qualifiers: Chronicity: chronic Qualified Code(s): M25.511 - Pain in right shoulder Low back pain Qualifiers: Chronicity: chronic Back pain laterality: unspecified Sciatica presence: without sciatica Qualified Code(s): M54.5 - Low back pain Degenerative joint disease, shoulder, right Qualifiers: Osteoarthritis type: unspecified Qualified Code(s): M19.011 - Primary osteoarthritis, right shoulder Disposition: 07 LEFT AGAINST MED ADVICE Is pt being admited?: No Does the pt Need Aspirin: No Condition: Stable Instructions: Osteoarthritis (ED), Chronic Hypertension (ED), Arthralgia (ED) Additional Instructions: Alternate Tylenol with ibuprofen every 8 hours as needed for discomfort. May use ice pack, heating pad, rest, Epson salt bath. Please take your blood pressure medication as prescribed by your doctor. Keep a blood pressure log and take your blood pressure 3 times a day and take this log to your primary care doctor. Eat a low-sodium diet. Avoid alcohol use and smoking. Incorporate 30 minutes of daily exercise. Increase your water intake. Return to the emergency room immediately for any new or worsening symptoms. You are leaving today AGAINST MEDICAL ADVICE, return immediately for a full evaluation/treatment. Referrals: CRISTINO BRODERICK MD [Staff Physician] - 3-[address] [facility] [Outside] - 3-5 Days Forms: AMA Form, Work/School Release Form(ED) Time of Disposition: 18:38 Print Language: [place]
[2019-09-05] MEDS ORDERED: amLODIPine 5 MG TAB PO ONE (18:50)
[2019-09-05] MEDS ORDERED: LOSARTAN 50 MG TAB PO ONE (18:51)
[2019-09-05 19:09] VITALS: BP 236/138
== END 2019-09-05 19:07 | disposition left against medical advice (07) ==
LOC: ED 14:43
DX: M19.011 Primary osteoarthritis, right shoulder (principal); I16.0 Hypertensive urgency; M54.5 Low back pain; Z88.0 Allergy status to penicillin
CPT/HCPCS: 99282

== ENCOUNTER 2019-11-04 17:50 | Observation (INO) | payer SELFPAY ==
[2019-11-04 19:34] LABS: Basophils % (Auto) 0.5 % (0.0-1.8); Eosinophils % (Auto) 0.5 % (0.0-4.3); Hematocrit 43.9 % (35.5-45.6); Lymphocytes # (Auto) 1.6 K/mm3 (1.2-5.4); Mean Corpuscular HGB Conc 34 % (32-34); Mean Corpuscular Volume 94 fl (84-94); Monocytes # (Auto) 0.4 K/mm3 (0.0-0.8); Monocytes % (Auto) 11.8 % (0.0-7.3); Platelet Count 216 K/mm3 (140-440); Red Blood Count 4.66 M/mm3 (3.65-5.03); Red Cell Distribution Width 13.5 % (13.2-15.2)
[2019-11-04 19:52] LABS: BUN/Creatinine Ratio 12; Blood Urea Nitrogen 12 mg/dL (9-20); Calcium 9.3 mg/dL (8.4-10.2); Hemolysis Index 9
[2019-11-04] MEDS ORDERED: NITROGLYCERIN 0.4 MG TAB SUBL SL PRN (20:16)
[2019-11-04] MEDS ORDERED: ASPIRIN 325 MG TAB PO ONE (20:16)
--- NOTE | 2019-11-04 21:11 | XRay Report ---
CHEST 1 VIEW INDICATION / CLINICAL INFORMATION: Chest Pain. COMPARISON: 01/01/2017 chest radiograph FINDINGS: SUPPORT DEVICES: None. HEART / MEDIASTINUM: No significant abnormality. LUNGS / PLEURA: No significant pulmonary or pleural abnormality. No pneumothorax. IMPRESSION: No acute finding. No significant change. Signer Name: Richardson Tesfaye MD Signed: 11/04/2019 9:07 PM Workstation Name: [id number]
--- NOTE | 2019-11-04 21:19 | Emergency Department Report ---
ED Chest Pain HPI - General Chief Complaint: Chest Pain Stated Complaint: CHEST PAIN/HEAD PAIN PUI?: No Time Seen by Provider: 11/04/19 20:12 Source: patient Mode of arrival: Ambulatory Limitations: No Limitations - History of Present Illness Initial Comments: Patient is a 59-year-old F [place] male with a past medical history of hypertension and hyperlipidemia who is presenting with chest discomfort. Patient is states he has been having chest pain for the last several days which is been worsening. Patient states that today his pain has been constant but is worse with exertion. Patient states while walking upstairs the pressure increases. States he has had shortness of breath associated with chest discomfort. Patient states that several times he had nausea and felt as though the pain was in his epigastrium as well. Patient denies any discomfort with eating. States there is no pleuritic component. He denies cough congestion fevers or chills. Patient does state he had some diaphoresis but thought it was due to the temperature outside - Related Data Previous Rx's Medication Instructions Recorded Last Taken Type Losartan [Cozaar] 100 mg PO QDAY #60 tablet 01/02/17 Unknown Rx Naproxen 500 mg PO Q12H PRN #30 tablet 07/31/19 Unknown Rx predniSONE [Deltasone] 40 mg PO QDAY #10 tab 07/31/19 Unknown Rx tiZANidine [Zanaflex 4mg TAB] 4 mg PO Q8H PRN #21 tablet 07/31/19 Unknown Rx traMADoL [Ultram 50 MG tab] 50 mg PO Q6HR PRN #12 tablet 07/31/19 Unknown Rx Allergies Allergy/AdvReac Type Severity Reaction Status Date / Time Penicillins Allergy Unknown Verified 11/13/16 06:30 Heart Score - HEART Score History: Highly suspicious EKG: Non-specific Age: 45-65 Risk factors: 1-2 risk factors Troponin: < normal limit HEART Score: 5 ED Review of Systems ROS: Stated complaint: CHEST PAIN/HEAD PAIN Other details as noted in HPI Comment: All other systems reviewed and negative ED Past Medical Hx - Past Medical History Previous Medical History?: Yes Hx Hypertension: Yes Hx Heart Attack/AMI: Yes Additional medical history: chronic back pain - Surgical History Past Surgical History?: No Hx Open Heart Surgery: Yes - Social History Smoking Status: Never Smoker Substance Use Type: Alcohol - Medications Home Medications: Home Medications Medication Instructions Recorded Confirmed Last Taken Type Losartan [Cozaar] 100 mg PO QDAY #60 tablet 01/02/17 Unknown Rx Naproxen 500 mg PO Q12H PRN #30 tablet 07/31/19 Unknown Rx predniSONE [Deltasone] 40 mg PO QDAY #10 tab 07/31/19 Unknown Rx tiZANidine [Zanaflex 4mg TAB] 4 mg PO Q8H PRN #21 tablet 07/31/19 Unknown Rx traMADoL [Ultram 50 MG tab] 50 mg PO Q6HR PRN #12 tablet 07/31/19 Unknown Rx ED Physical Exam - General Limitations: No Limitations General appearance: alert, in no apparent distress - Head Head exam: Present: atraumatic, normocephalic - Eye Eye exam: Present: normal appearance, PERRL, EOMI - ENT ENT exam: Present: normal orophraynx, mucous membranes moist - Neck Neck exam: Present: normal inspection - Respiratory Respiratory exam: Present: normal lung sounds bilaterally. Absent: respiratory distress, wheezes, rales, rhonchi - Cardiovascular Cardiovascular Exam: Present: regular rate, normal rhythm, normal heart sounds. Absent: systolic murmur, diastolic murmur, rubs, gallop - GI/Abdominal GI/Abdominal exam: Present: soft, normal bowel sounds. Absent: distended, tenderness, guarding, rebound - Rectal Rectal exam: Present: deferred - Extremities Exam Extremities exam: Present: normal inspection - Back Exam Back exam: Present: normal inspection - Neurological Exam Neurological exam: Present: alert, oriented X3 - Psychiatric Psychiatric exam: Present: normal affect, normal mood - Skin Skin exam: Present: warm, dry, intact, normal color. Absent: rash ED Course Vital Signs 11/04/19 17:55 Temperature 98.9 F Pulse Rate 88 Respiratory 18 Rate Blood Pressure 172/109 O2 Sat by Pulse 96 Oximetry EMY score - Emy Score Age > 65: (0) No Aspirin use within the Past 7 Days: (0) No 3 or more CAD Risk Factors: (0) No 2 or more Angina events in past 24 hrs: (1) Yes Known CAD with more than 50% Stenosis: (0) No Elevated Cardiac Markers: (0) No ST Deviation Greater than 0.5mm: (0) No EYM Score: 1 ED Medical Decision Making - Lab Data Result diagrams: 11/04/19 19:18 11/04/19 19:18 Lab Results 11/04/19 11/04/19 Range/Units 19:18 19:18 WBC 3.3 L (4.5-11.0) K/mm3 RBC 4.66 (3.65-5.03) M/mm3 Hgb 15.0 (11.8-15.2) gm/dl Hct 43.9 (35.5-45.6) % MCV 94 (84-94) fl MCH 32 (28-32) pg MCHC 34 (32-34) % RDW 13.5 (13.2-15.2) % Plt Count 216 (140-440) K/mm3 Lymph % (Auto) 47.0 H (13.4-35.0) % [place] % (Auto) 11.8 H (0.0-7.3) % Eos % (Auto) 0.5 (0.0-4.3) % Baso % (Auto) 0.5 (0.0-1.8) % Lymph # 1.6 (1.2-5.4) K/mm3 [place] # 0.4 (0.0-0.8) K/mm3 Eos # 0.0 (0.0-0.4) K/mm3 Baso # 0.0 (0.0-0.1) K/mm3 Seg Neutrophils % 40.2 (40.0-70.0) % Seg Neutrophils # 1.3 L (1.8-7.7) K/mm3 Sodium 139 (137-145) mmol/L Potassium 3.9 (3.6-5.0) mmol/L Chloride 102.3 (98-107) mmol/L Carbon Dioxide 21 L (22-30) mmol/L Anion Gap 20 mmol/L BUN 12 (9-20) mg/dL Creatinine 1.0 (0.8-1.5) mg/dL Estimated GFR > 60 ml/min BUN/Creatinine Ratio 12 % Glucose 93 (75-100) mg/dL Calcium 9.3 (8.4-10.2) mg/dL Troponin T < 0.010 (0.00-0.029) ng/mL - EKG Data -: EKG Interpreted by Ne EKG shows normal: sinus rhythm, axis, intervals, QRS complexes, ST-T waves Rate: normal - EKG Data Interpretation: LVH - Radiology Data Radiology results: image reviewed (Chest x-ray is within normal limits and shows no acute process) - Medical Decision Making Patient has elevated heart score and does have risk factors for coronary disease. The past several days his pain is worsening and he does meet criteria for admission for further cardiac risk ratification. Patient will be admitted to the hospitalist service with cardiology consult. He reviewed the patient's records he did have a stress test in 2017 which was within normal limits. Critical Care Time: Yes Critical care attestation.: If time is entered above; I have spent that time in minutes in the direct care of this critically ill patient, excluding procedure time. ED Disposition Clinical Impression: Unstable angina Disposition: 09 OP ADMIT IP TO THIS HOSP Is pt being admited?: Yes Does the pt Need Aspirin: No Condition: Stable Instructions: Angina (ED) Referrals: PRIMARY CAREMD [Primary Care Provider] - 3-5 Days Time of Disposition: 21:22
--- NOTE | 2019-11-04 23:13 | History and Physical Report ---
History of Present Illness Date of admission: 11/04/19 22:02 History of present illness: 59-year-old man who states that he had a mild heart attack 2 years ago, also has a history of hypertension, hyperlipidemia comes emergency room with complaints of chest chest pain. Pain is in the epigastric area which she stated started 4 days ago, sharp, worse with movement, intensity 5/10, no radiation, better with IV pain medications. Denies nausea vomiting, shortness breath, diaphoresis or palpitation. Patient will be admitted for chest pain evaluation Review Of Systems: Constitutional: no weight loss, fever, chills Ears, eyes, nose, mouth and throat: no nasal congestion, no nasal discharge, no sinus pressure, blurry vision, diplopia Neck: No neck pain or rigidity. Cardiovascular: No palpitations, chest pain Respiratory: No shortness of breath, cough Gastrointestinal: No hematochezia Genitourinary : no dysuria, frequency Musculoskeletal: no muscle ache , joint pain Integumentary: no rash, no pruritis Neurological: no parathesias, focal weakness Endocrine: no cold or heat intolerance, no polyuria or polydipsia Hematologic/Lymphatic: no easy bruising, no easy bleeding, no gland swelling Allergic/Immunologic: no urticaria, no angioedema. PAST MEDICAL HISTORY: mild heart attack 2 years ago, hypertension, hyperlipidemia PAST SURGICAL HISTORY: None SOCIAL HISTORY: Denies tobacco, drugs, +alcohol FAMILY HISTORY: Hypertension Medications and Allergies Allergies Allergy/AdvReac Type Severity Reaction Status Date / Time Penicillins Allergy Unknown Verified 11/13/16 06:30 Home Medications Medication Instructions Recorded Confirmed Last Taken Type Losartan [Cozaar] 100 mg PO QDAY #60 tablet 01/02/17 Unknown Rx Naproxen 500 mg PO Q12H PRN #30 tablet 07/31/19 Unknown Rx predniSONE [Deltasone] 40 mg PO QDAY #10 tab 07/31/19 Unknown Rx tiZANidine [Zanaflex 4mg TAB] 4 mg PO Q8H PRN #21 tablet 07/31/19 Unknown Rx traMADoL [Ultram 50 MG tab] 50 mg PO Q6HR PRN #12 tablet 07/31/19 Unknown Rx Active Meds: Active Medications Enoxaparin Sodium (Enoxaparin) 40 mg SUB-Q QAM DARI Nitroglycerin (Nitrostat) 0.4 mg SL .Q5MIN PRN PRN Reason: Chest Pain Exam - Physical Exam Narrative exam: Gen. appearance: Patient lying in bed, no apparent distress HEENT: Normocephalic, atraumatic, pupils equally round and reactive to light, extraocular movement intact, and no sclericterus,. No JVD or thyromegaly or no dule,neck supple, no carotid bruit ,mucous membranes moist, no exudate or erythema Heart: S1, S2, regular rate and rhythm Lungs: Clear bilaterally, breathing comfortable Abdomen: Positive bowel sounds, tender in mid abdomen, nondistended, no organomegaly Extremity: no edema, cyanosis, clubbing Skin: No rash, nodules, warm, dry Neuro: Cranial nerves II to XII intact, speech is fluent, moves extremities, sensory intact - Constitutional Vitals: Temp Pulse Resp BP Pulse Ox 98.9 F 66 14 172/109 98 11/04/19 17:55 11/04/19 21:46 11/04/19 21:46 11/04/19 17:55 11/04/19 21:46 HEART Score - HEART Score EKG: Non-specific Age: 45-65 Risk factors: 1-2 risk factors Troponin: Troponin T < 0.010 ng/mL (0.00-0.029) 11/04/19 21:24 Troponin: < normal limit Results - Labs CBC & Chem 7: 11/04/19 19:18 11/04/19 19:18 Labs: Abnormal lab results 11/04/19 11/04/19 Range/Units 19:18 19:18 WBC 3.3 L (4.5-11.0) K/mm3 Lymph % (Auto) 47.0 H (13.4-35.0) % [place] % (Auto) 11.8 H (0.0-7.3) % Seg Neutrophils # 1.3 L (1.8-7.7) K/mm3 Carbon Dioxide 21 L (22-30) mmol/L - Imaging and Cardiology EKG: image reviewed Chest x-ray: report reviewed Assessment and Plan Assessment Chest pain/CAD Check cardiac enzymes, stress test. Start aspirin, IV morphine Abdominal pain Check CT abdomen Hypertension Restart outpatient medications Hyperlipidemia Start statin DVT prophylax
--- NOTE | 2019-11-04 23:21 | Cat Scan Report ---
CT scan of the abdomen and pelvis without contrast INDICATION: Pt complains of epigastric abdominal pain x 4 days. No previous abdominal surgeries.. TECHNIQUE: All CT scans at this location are performed using the following dose modulation technique: Automated exposure control. Helical slices were obtained through the abdomen and pelvis. No contrast is adminis tered. COMPARISON: CT scan dated 01/12/2017 FINDINGS: No acute abnormality is seen in the lower chest. Liver, spleen, pancreas, adrenal glands, and kidneys show no acute abnormalities. There is a stable cyst in the upper pole the right kidney. The aorta is normal in diameter. There is no obstruction, inflammation, or free air. Pelvis: The appendix is unremarkable. There is no obstruction or inflammation. There are no abnormal fluid collections. On review of bone windows, no acute osseous abnormalities are seen. IMPRESSION: 1. There is no obstruction, inflammation, or free air. There are no abnormal fluid collections. No ac nigel abnormality is seen. Signer Name: Wil Pérez MD Signed: 11/04/2019 11:17 PM Workstation Name: [id number]
[2019-11-04] MEDS ORDERED: MORPHINE 2 MG/1 ML INJ IV PRN (23:41)
[2019-11-04] MEDS ORDERED: ACETAMINOPHEN 325 MG TAB PO PRN (23:41)
[2019-11-04] MEDS ORDERED: METOCLOPRAMIDE 10 MG/2 ML INJ IV PRN (23:41)
[2019-11-04] MEDS ORDERED: ONDANSETRON 4 MG/2 ML INJ IV PRN (23:41)
[2019-11-04] MEDS ORDERED: hydrALAZINE 20 MG/1 ML INJ IV PRN (23:42)
[2019-11-05 04:44] LABS: Basophils % (Auto) 0.5 % (0.0-1.8); Eosinophils % (Auto) 0.7 % (0.0-4.3); Hemoglobin 14.4 gm/dl (11.8-15.2); Lymphocytes # (Auto) 1.5 K/mm3 (1.2-5.4); Lymphocytes % (Auto) 48.5 % (13.4-35.0); Mean Corpuscular HGB Conc 34 % (32-34); Mean Corpuscular Volume 95 fl (84-94); Monocytes # (Auto) 0.4 K/mm3 (0.0-0.8); Monocytes % (Auto) 11.8 % (0.0-7.3); Platelet Count 189 K/mm3 (140-440); Red Blood Count 4.51 M/mm3 (3.65-5.03); Red Cell Distribution Width 13.9 % (13.2-15.2)
[2019-11-05 04:58] LABS: BUN/Creatinine Ratio 14; Blood Urea Nitrogen 13 mg/dL (9-20); Calcium 8.9 mg/dL (8.4-10.2); Hemolysis Index 15
[2019-11-05] MEDS ORDERED: REGADENOSON 0.4 MG/5 ML INJ IV ONE ×2 (07:24→07:27)
[2019-11-05] MEDS ORDERED: ENOXAPARIN 40 MG/0.4 ML INJ SUB-Q SCH (10:00)
[2019-11-05] MEDS ORDERED: ASPIRIN 81 MG TAB CHEW PO SCH (10:00)
[2019-11-05] MEDS ORDERED: ASPIRIN 81 MG TAB CHEW ONE (12:23)
[2019-11-05] MEDS ORDERED: MORPHINE 2 MG/1 ML INJ ONE (12:24)
[2019-11-05] MEDS ORDERED: ONDANSETRON 4 MG/2 ML INJ ONE (12:24)
[2019-11-05] MEDS ORDERED: hydrALAZINE 20 MG/1 ML INJ ONE (12:25)
--- NOTE | 2019-11-05 13:06 | Consultation ---
History of Present Illness Consult date: 11/05/19 Consult reason: chest pain, hypertension History of present illness: The patient is a 59-year-old man with a history of hypertension, which he admits to poor control in the outpatient setting. His current medicine that is listed is losartan 50 mg. He presented to the hospital at this time with atypical, poorly characterized nonexertional chest pain. ECG is normal sinus rhythm with LVH voltage criteria, otherwise normal ECG with no ST or T wave changes of ischemia. Serial troponin levels were normal. Today, he underwent a Lexiscan thallium stress test, normal myocardial perfusion, normal left ventricular systolic function with ejection fraction 59% by gated SPECT. He was not a candidate for exercise treadmill due to p ersistently elevated blood pressures since admission, currently 190 systolic. Past History Past Medical History: hypertension Medications and Allergies Allergies Allergy/AdvReac Type Severity Reaction Status Date / Time Penicillins Allergy Unknown Verified 11/13/16 06:30 Home Medications Medication Instructions Recorded Confirmed Last Taken Type Losartan [Cozaar] 100 mg PO QDAY #60 tablet 01/02/17 Unknown Rx Naproxen 500 mg PO Q12H PRN #30 tablet 07/31/19 Unknown Rx predniSONE [Deltasone] 40 mg PO QDAY #10 tab 07/31/19 Unknown Rx tiZANidine [Zanaflex 4mg TAB] 4 mg PO Q8H PRN #21 tablet 07/31/19 Unknown Rx traMADoL [Ultram 50 MG tab] 50 mg PO Q6HR PRN #12 tablet 07/31/19 Unknown Rx Active Meds: Active Medications Acetaminophen (Tylenol) 650 mg PO Q4H PRN PRN Reason: Pain MILD(1-3)/Fever >100.5/VELASCO Aspirin (Baby Aspirin) 81 mg PO QDAY [facility] Last Admin: 11/05/19 12:31 Dose: 81 mg Documented by: Enoxaparin Sodium (Enoxaparin) 40 mg SUB-Q QAM [facility] Last Admin: 11/05/19 12:33 Dose: Not Given Documented by: Hydralazine HCl (Apresoline) 5 mg IV Q6H PRN PRN Reason: Hypertension Last Admin: 11/05/19 12:32 Dose: 5 mg Documented by: Metoclopramide HCl (Reglan) 10 mg IV Q6H PRN PRN Reason: Nausea And Vomiting Morphine Sulfate (Morphine) 2 mg IV Q4H PRN PRN Reason: Pain, Moderate (4-6) Last Admin: 11/05/19 12:32 Dose: 2 mg Documented by: Nifedipine (Procardia Xl) 60 mg PO QDAY [facility] Nitroglycerin (Nitrostat) 0.4 mg SL .Q5MIN PRN PRN Reason: Chest Pain Ondansetron HCl (Zofran) 4 mg IV Q8H PRN PRN Reason: Nausea And Vomiting Last Admin: 11/05/19 12:31 Dose: 4 mg Documented by: Sodium Chloride (Sodium Chloride Flush Syringe 10 Ml) 10 ml IV BID DARI Last Admin: 11/05/19 12:30 Dose: 10 ml Documented by: Sodium Chloride (Sodium Chloride Flush Syringe 10 Ml) 10 ml IV PRN PRN PRN Reason: LINE FLUSH Review of Systems Cardiovascular: chest pain, no orthopnea, no palpitations, no rapid/irregular heart beat, no edema, no syncope, no lightheadedness, no shortness of breath Physical Examination Vital Signs Temp Pulse Resp BP Pulse Ox 98.9 F 88 18 172/109 96 11/04/19 17:55 11/04/19 17:55 11/04/19 17:55 11/04/19 17:55 11/04/19 17:55 General appearance: no acute distress HEENT: Positive: PERRL Neck: Positive: neck supple Cardiac: Positive: Reg Rate and Rhythm Lungs: Positive: clear to auscultation Neuro: Positive: Grossly Intact Abdomen: Positive: Soft Male genitourinary: Positive: deferred Skin: Positive: Clear Extremities: Absent: edema Results 11/05/19 04:22 11/05/19 04:22 CBC 11/04/19 11/05/19 Range/Units 19:18 04:22 WBC 3.3 L 3.2 L (4.5-11.0) K/mm3 RBC 4.66 4.51 (3.65-5.03) M/mm3 Hgb 15.0 14.4 (11.8-15.2) gm/dl Hct 43.9 43.0 (35.5-45.6) % Plt Count 216 189 (140-440) K/mm3 Lymph # 1.6 1.5 (1.2-5.4) K/mm3 [place] # 0.4 0.4 (0.0-0.8) K/mm3 Eos # 0.0 0.0 (0.0-0.4) K/mm3 Baso # 0.0 0.0 (0.0-0.1) K/mm3 Comprehensive Metabolic Panel 11/04/19 11/05/19 Range/Units 19:18 04:22 Sodium 139 140 (137-145) mmol/L Potassium 3.9 4.0 (3.6-5.0) mmol/L Chloride 102.3 103.0 (98-107) mmol/L Carbon Dioxide 21 L 23 (22-30) mmol/L BUN 12 13 (9-20) mg/dL Creatinine 1.0 0.9 (0.8-1.5) mg/dL Glucose 93 87 (75-100) mg/dL Calcium 9.3 8.9 (8.4-10.2) mg/dL EKG interpretations - Telemetry EKG Rhythm: Sinus Rhythm Assessment and Plan - Patient Problems (1) Uncontrolled hypertension Current Visit: Yes Status: Acute Plan to address problem: The patient has severe uncontrolled hypertension with systolic blood pressures persistently 170s to 190s. I will add Procardia XL 60 mg to his regimen, continue losartan at 100 mg. (2) Chest pain Current Visit: No Status: Acute Plan to address problem: Chest pain is atypical, EKG is negative, troponin levels are negative, Lexiscan thallium stress test is negative. No further cardiac work-up is indicated.
[2019-11-05] MEDS ORDERED: LOSARTAN 50 MG TAB PO SCH (14:00)
[2019-11-05] MEDS ORDERED: NIFEdipine XL 60 MG TAB PO SCH (14:00)
--- NOTE | 2019-11-05 14:12 | Treadmill Report ---
THALLIUM STRESS TEST LEFT VENTRICLE: Left ventricular chamber size is within normal spread. Perfusion study demonstrates homogeneous uptake of the tracer in all segments. No significant defects identified. Gated analysis demonstrates normal left ventricular systolic function, ejection fraction 59%. CONCLUSION: Normal myocardial perfusion study. JOB# [id number] CA/NTS
[2019-11-05] MEDS ORDERED: NITROGLYCERIN 0.4 MG TAB SUBL SL ONE (14:18)
[2019-11-05] MEDS ORDERED: LOSARTAN 50 MG TAB ONE (15:30)
--- NOTE | 2019-11-05 16:13 | Discharge Summary ---
Providers - Providers Date of Admission: 11/04/19 22:02 Date of discharge: 11/05/19 Attending physician: SELVIN FRANKLIN 11/05/19 11:09 Consult to Physician [CONS] Routine Comment: Consulting Provider: ZAK BIGGS Physician Instructions: Reason For Exam: chest pain Primary care physician: F[employer] MANAGER Hospitalization Condition: Stable Pertinent studies: CXR Abdomen/pelvis CT 2d echo MPI stress test Hospital course: The patient is a 59-year-old man with a history of poorly controlled hypertension presented to the hospital with atypical, poorly characterized nonexertional chest pain. ECG was normal sinus rhythm with no ST or T wave changes of ischemia. Serial troponin levels were normal. Today, he underwent a Lexiscan thallium stress test, normal myocardial perfusion, normal left ventricular systolic function with ejection fraction 59% by gated SPECT. He was not a candidate for exercise treadmill due to persistently elevated blood pressures since admission. His blood pressure medications were adjusted and he was discharged home in stable condition with outpatient follow-up. Discharge diagnosis: Atypical chest pain, likely due to GERD Hypertension, uncontrolled -Antihypertensives were adjusted Hyperlipidemia, started on statin DVT Px Disposition: DC-01 TO HOME OR SELFCARE Time spent for discharge: 34 minutes Core Measure Documentation - Palliative Care Palliative Care/ Comfort Measures: Not Applicable - Core Measures Any of the following diagnoses?: none Exam - Constitutional Vitals: Temp Pulse Resp BP Pulse Ox 98.1 F 90 17 156/91 95 11/05/19 03:36 11/05/19 16:00 11/05/19 16:00 11/05/19 16:00 11/05/19 16:00 General appearance: Present: no acute distress, well-nourished - EENT Eyes: Present: PERRL ENT: hearing intact, clear oral mucosa - Neck Neck: Present: supple, normal ROM - Respiratory Respiratory effort: normal Respiratory: bilateral: CTA - Cardiovascular Heart Sounds: Present: S1 & S2. Absent: rub, click - Extremities Extremities: pulses symmetrical, No edema Peripheral Pulses: within normal limits - Abdominal General gastrointestinal: Present: soft, non-tender, non-distended, normal bowel sounds - Integumentary Integumentary: Present: clear, warm, dry - Musculoskeletal Musculoskeletal: gait normal, strength equal bilaterally - Psychiatric Psychiatric: appropriate mood/affect, intact judgment & insight - Neurologic Neurologic: CNII-XII intact, moves all extremities Plan Activity: advance as tolerated Weight Bearing Status: Weight Bear as Tolerated Diet: low fat, low salt Follow up with: PRIMARY CAREMD [Primary Care Provider] - 3-5 Days MICHELLE AVILA MD [Staff Physician] - 7 Days Forms: Work/School Release Form(ED) Prescriptions: AtorvaSTATin [Lipitor] 20 mg PO QHS #30 tab Aspirin [Aspirin BABY CHEW TAB] 81 mg PO QDAY #30 tab.chew NIFEdipine XL [Procardia Xl] 60 mg PO QDAY #30 tablet
[2019-11-05 16:47] VITALS: BP 160/91
== END 2019-11-05 18:06 | disposition home or self-care (01) ==
LOC: ED 17:50 → 4A 22:02
PROVIDERS: ADMIT Internal Medicine; ATTEND Internal Medicine
DX: R07.89 Other chest pain (principal); R10.13 Epigastric pain; I20.0 Unstable angina; I10 Essential (primary) hypertension; E78.5 Hyperlipidemia, unspecified; I25.2 Old myocardial infarction; G89.29 Other chronic pain; M54.9 Dorsalgia, unspecified; Z79.899 Other long term (current) drug therapy; Z88.0 Allergy status to penicillin
CPT/HCPCS: 36415; 71045; 74176; 78452; 80048; 84484; 85025; 93005; 93017; 96374; 96375; 99285; A9502; G0378; J0360; J2270; J2405; J2785

== ENCOUNTER 2021-04-11 03:12 | Observation (INO) | payer OTHER ==
[2021-04-11 04:01] LABS: Basophils % (Auto) 0.7 % (0.0-1.8); Eosinophils % (Auto) 0.3 % (0.0-4.3); Hematocrit 44.6 % (35.5-45.6); Hemoglobin 14.9 gm/dl (11.8-15.2); Lymphocytes % (Auto) 32.1 % (13.4-35.0); Mean Corpuscular HGB Conc 33 % (32-34); Mean Corpuscular Volume 95 fl (84-94); Monocytes # (Auto) 0.6 K/mm3 (0.0-0.8); Monocytes % (Auto) 10.1 % (0.0-7.3); Platelet Count 204 K/mm3 (140-440); Red Blood Count 4.68 M/mm3 (3.65-5.03); Red Cell Distribution Width 13.6 % (13.2-15.2)
--- NOTE | 2021-04-11 04:04 | Emergency Department Report ---
ED Syncope HPI - General Chief Complaint: Syncope Stated Complaint: FALL/HEAD INJURY/CONFUSION/HEADACHE Time Seen by Provider: 04/11/21 03:43 Source: patient, old records Exam Limitations: no limitations - History of Present Illness Initial Comments: 61-year-old male with past medical history of hypertension presents to the hospital complaining of fall versus syncope that occurred last night. Patient states he remembers making something to eat, eating, and then went to bed. He woke up with right parietal head tenderness and swelling and suspects that he fell in the kitchen. Patient cannot recall fall. He admits to drinking beer and mixed drinks last night. Patient drinks alcohol daily but denies history of alcohol withdrawal tremors or seizures. He is noncompliant with his nifedipine x1 week because he cannot find the medication. Patient cannot remember his dos age but as per medical record on November 05, 2019 he was on Procardia XL 60 mg daily. Patient had a negative thallium stress test at that time. Patient is no longer taking Lipitor or aspirin. He does not currently take any anticoagulants. He complains of 8/10 right-sided headache worse with palpation. Denies neck pain, chest pain, shortness of breath, fever, nausea, vomiting, melena, or hematochezia - Related Data Allergies/Adverse Reactions: Allergies Penicillins Allergy (Verified 04/11/21 03:34) Unknown Home Medications: Ambulatory Orders Losartan [Cozaar] 100 mg PO QDAY #60 tablet 01/02/17 tiZANidine [Zanaflex 4mg TAB] 4 mg PO Q8H PRN #21 tablet 07/31/19 Aspirin [Aspirin BABY CHEW TAB] 81 mg PO QDAY #30 tab.chew 11/05/19 AtorvaSTATin [Lipitor] 20 mg PO QHS #30 tab 11/05/19 NIFEdipine XL [Procardia Xl] 60 mg PO QDAY #30 tablet 11/05/19 ED Review of Systems ROS: Stated complaint: FALL/HEAD INJURY/CONFUSION/HEADACHE Other details as noted in HPI Comment: All other systems reviewed and negative ED Past Medical Hx - Past Medical History Hx Hypertension: Yes Hx Heart Attack/AMI: Yes Additional medical history: chronic back pain - Surgical History Hx Open Heart Surgery: Yes - Social History Smoking Status: Never Smoker - Medications Home Medications: Home Medications Medication Instructions Recorded Confirmed Last Taken Type Losartan [Cozaar] 100 mg PO QDAY #60 tablet 01/02/17 11/05/19 11/02/19 Rx tiZANidine [Zanaflex 4mg TAB] 4 mg PO Q8H PRN #21 tablet 07/31/19 11/05/19 11/02/19 Rx Aspirin [Aspirin BABY CHEW TAB] 81 mg PO QDAY #30 tab.chew 11/05/19 Unknown Rx AtorvaSTATin [Lipitor] 20 mg PO QHS #30 tab 11/05/19 Unknown Rx NIFEdipine XL [Procardia Xl] 60 mg PO QDAY #30 tablet 11/05/19 Unknown Rx ED Physical Exam - General Limitations: No Limitations - Other Other exam information: General: No acute distress Head: Right parietal tenderness Eyes: normal appearance ENT: Moist mucous membranes Neck: Normal appearance, no midline tenderness Chest: Clear to auscultation bilaterally CV: Regular rate and rhythm Abdomen: Soft, normal bowel sounds, nontender, nondistended, no rebound or guarding Back: Normal inspection Extremity: Normal inspection, full range of motion, no calf tenderness or leg edema Neuro: Alert O x 3, no facial asymmetry, speech clear, no gross motor sensory deficit Psych: Appropriate behavior Skin: No rash ED Course Vital Signs 04/11/21 04/11/21 03:37 03:54 Temperature 97.8 F 98.3 F Pulse Rate 78 69 Respiratory 19 19 Rate Blood Pressure 171/103 172/101 [Right] O2 Sat by Pulse 98 99 Oximetry - Consultations Consultation #1: 04/11/21 04:[address] Cirilo Gold educational therapist cardiology interventionalists. No acute intervention recommended this time based on EKG. Recommend q. 15-minute EKGs x3 to evaluate for acute change. ED Medical Decision Making - Lab Data Result diagrams: 04/11/21 03:42 04/11/21 03:42 Lab Results 04/11/21 04/11/21 04/11/21 Range/Units 03:42 03:42 03:42 WBC 6.2 (4.5-11.0) K/mm3 RBC 4.68 (3.65-5.03) M/mm3 Hgb 14.9 (11.8-15.2) gm/dl Hct 44.6 (35.5-45.6) % MCV 95 H (84-94) fl MCH 32 (28-32) pg MCHC 33 (32-34) % RDW 13.6 (13.2-15.2) % Plt Count 204 (140-440) K/mm3 Lymph % (Auto) 32.1 (13.4-35.0) % [place] % (Auto) 10.1 H (0.0-7.3) % Eos % (Auto) 0.3 (0.0-4.3) % Baso % (Auto) 0.7 (0.0-1.8) % Lymph # (Auto) 2.0 (1.2-5.4) K/mm3 [place] # (Auto) 0.6 (0.0-0.8) K/mm3 Eos # (Auto) 0.0 (0.0-0.4) K/mm3 Baso # (Auto) 0.0 (0.0-0.1) K/mm3 Seg Neutrophils % 56.8 (40.0-70.0) % Seg Neutrophils # 3.5 (1.8-7.7) K/mm3 PT 12.1 L (12.2-14.9) Sec. INR 0.81 L (0.87-1.13) APTT 23.1 L (24.2-36.6) Sec. Sodium 138 (137-145) mmol/L Potassium 3.8 (3.6-5.0) mmol/L Chloride 99.7 (98-107) mmol/L Carbon Dioxide 26 (22-30) mmol/L Anion Gap 16 mmol/L BUN 15 (9-20) mg/dL Creatinine 1.0 (0.8-1.3) mg/dL Estimated GFR > 60 ml/min BUN/Creatinine Ratio 15 % Glucose 95 (75-100) mg/dL Calcium 9.9 (8.4-10.2) mg/dL Magnesium 1.80 (1.7-2.3) mg/dL Troponin T < 0.010 (0.00-0.029) ng/mL Plasma/Serum Alcohol (0-0.07) % 04/11/21 04/11/21 Range/Units 03:42 03:52 WBC (4.5-11.0) K/mm3 RBC (3.65-5.03) M/mm3 Hgb (11.8-15.2) gm/dl Hct (35.5-45.6) % MCV (84-94) fl MCH (28-32) pg MCHC (32-34) % RDW (13.2-15.2) % Plt Count (140-440) K/mm3 Lymph % (Auto) (13.4-35.0) % [place] % (Auto) (0.0-7.3) % Eos % (Auto) (0.0-4.3) % Baso % (Auto) (0.0-1.8) % Lymph # (Auto) (1.2-5.4) K/mm3 [place] # (Auto) (0.0-0.8) K/mm3 Eos # (Auto) (0.0-0.4) K/mm3 Baso # (Auto) (0.0-0.1) K/mm3 Seg Neutrophils % (40.0-70.0) % Seg Neutrophils # (1.8-7.7) K/mm3 PT (12.2-14.9) Sec. INR (0.87-1.13) APTT (24.2-36.6) Sec. Sodium (137-145) mmol/L Potassium (3.6-5.0) mmol/L Chloride (98-107) mmol/L Carbon Dioxide (22-30) mmol/L Anion Gap mmol/L BUN (9-20) mg/dL Creatinine (0.8-1.3) mg/dL Estimated GFR ml/min BUN/Creatinine Ratio % Glucose (75-100) mg/dL Calcium (8.4-10.2) mg/dL Magnesium 1.70 (1.7-2.3) mg/dL Troponin T (0.00-0.029) ng/mL Plasma/Serum Alcohol < 0.01 (0-0.07) % - EKG Data -: EKG Interpreted by Ok EKG shows normal: sinus rhythm, ST-T waves (Hyperacute appearing T waves with mild ST elevation and inverted T waves in anterior) Rate: normal - EKG Data When compared to previous EKG there are: changes noted (Mild changes noted) - Radiology Data Radiology results: report reviewed CT head/brain wo con, CT cervical spine wo con INDICATION / CLINICAL INFORMATION: Syncope. TECHNIQUE: Axial coronal and sagittal images All CT scans at this location are performed using CT dose reduction for ALARA by means of automated exposure control. COMPARISON: None available. FINDINGS: Head: No acute intracranial hemorrhage. Ventricles normal in size without midline shift or mass effect. No extra-axial fluid collection is seen. Nonspecific white matter change in the periventricular and central white matter. Visualized orbits appear normal. Cervical spine: Cervical spine alignment appears normal. Anterior posterior disc osteophytes are seen. No subluxation is identified no displaced fractures seen. Odontoid appears intact. IMPRESSION: 1. No acute findings are seen within the head or cervical spine. Discogenic degenerative changes seen throughout the cervical spine CHEST 1 VIEW 04/11/2021 4:17 AM INDICATION / CLINICAL INFORMATION: syncope SINCE LAST NIGHT. COMPARISON: None available. FINDINGS: SUPPORT DEVICES: None. HEART / MEDIASTINUM: No significant abnormality. LUNGS / PLEURA: No significant pulmonary or pleural abnormality. No pneumothorax. ADDITIONAL FINDINGS: No significant additional findings. IMPRESSION: 1. No acute findings. - Medical Decision Making 61-year-old male had an unwitnessed fall/syncopal episode. Patient cannot recall the event. No surgical alcohol last night. Complains of right-sided head pain but otherwise denies symptoms including chest pain or shortness of breath. EKG shows some mild abnormalities compared to previous. Case discussed with interventionalist. Acute intervention I recommend this time. repeat EKG and observation suggested. Patient provided aspirin. Received Toradol and Pepcid Critical Care Time: No Critical care attestation.: If time is entered above; I have spent that time in minutes in the direct care of this critically ill patient, excluding procedure time. ED Disposition Clinical Impression: Syncope, Abnormal EKG, Uncontrolled hypertension, Noncompliance with medication regimen, Daily consumption of alcohol, Scalp hematoma Disposition: ADMITTED INPATIENT Is pt being admited?: Yes Condition: Stable Instructions: Syncope (ED), Hypertension (ED) Time of Disposition: 05:16
[2021-04-11 04:13] LABS: INR 0.81 (0.87-1.13)
[2021-04-11 04:14] LABS: Partial Thromboplastin Time 23.1 Sec. (24.2-36.6)
[2021-04-11 04:20] LABS: BUN/Creatinine Ratio 15; Blood Urea Nitrogen 15 mg/dL (9-20); Calcium 9.9 mg/dL (8.4-10.2); Hemolysis Index 12
[2021-04-11] MEDS ORDERED: KETOROLAC 60 MG/2 ML INJ IM ONE (04:33)
--- NOTE | 2021-04-11 04:36 | Cat Scan Report ---
CT head/brain wo con, CT cervical spine wo con INDICATION / CLINICAL INFORMATION: Syncope. TECHNIQUE: Axial coronal and sagittal images All CT scans at this location are performed using CT dose reduction for ALARA by means of automated exposure control. COMPARISON: None available. FINDINGS: Head: No acute intracranial hemorrhage. Ventricles normal in size without midline shift or mass effect. No extra-axial fluid collection is seen. Nonspecific white matter change in the periventricular and cent ral white matter. Visualized orbits appear normal. Cervical spine: Cervical spine alignment appears normal. Anterior posterior disc osteophytes are seen. No subluxation is identified no displaced fractures seen. Odontoid appears intact. IMPRESSION: 1. No acute findings are seen within the head or cervical spine. Discogenic degenerative changes seen throughout the cervical spine Signer Name: Milton King MD Signed: 04/11/2021 4:31 AM Workstation Name: [id number]
[2021-04-11] MEDS ORDERED: FAMOTIDINE 20 MG/2 ML INJ IV ONE (04:50)
[2021-04-11] MEDS ORDERED: ASPIRIN 325 MG TAB PO ONE (04:50)
--- NOTE | 2021-04-11 05:25 | XRay Report ---
CHEST 1 VIEW 04/11/2021 4:17 AM INDICATION / CLINICAL INFORMATION: syncope SINCE LAST NIGHT. COMPARISON: None available. FINDINGS: SUPPORT DEVICES: None. HEART / MEDIASTINUM: No significant abnormality. LUNGS / PLEURA: No significant pulmonary or pleural abnormality. No pneumothorax. ADDITIONAL FINDINGS: No significant additional findings. IMPRESSION: 1. No acute findings. Signer Name: Milton King MD Signed: 04/11/2021 5:20 AM Workstation Name: [email or web address]
[2021-04-11] MEDS ORDERED: NITROGLYCERIN 0.4 MG TAB SUBL SL PRN (06:00)
[2021-04-11] MEDS ORDERED: MORPHINE 4 MG/1 ML INJ IV PRN (06:00)
[2021-04-11] MEDS ORDERED: traMADol 50 MG TAB PO PRN (06:00)
[2021-04-11] MEDS ORDERED: ACETAMINOPHEN 325 MG TAB PO PRN (06:00)
--- NOTE | 2021-04-11 06:09 | History and Physical Report ---
History of Present Illness Date of examination: 04/11/21 Date of admission: 04/11/21 Chief complaint: Syncope fall head injury Confusion and headache History of present illness: 61-year-old male with past medical history of hypertension presents to the hospital complaining of fall versus syncope that occurred last night. Patient states he remembers making something to eat, eating, and then went to bed. He woke up with right parietal head tenderness and swelling and suspects that he fell in the kitchen. Patient cannot recall fall. He admits to drinking beer and mixed drinks last night. Patient drinks alcohol daily but denies history of alcohol withdrawal tremors or seizures. He is noncompliant with his nifedipine x1 week because he cannot find the medication. Patient cannot remember his dosage but as per medical record on November 05, 2019 he was on Procardia XL 60 mg daily. Patient had a negative thallium stress test at that time. He complains of 8/10 right-sided headache worse with palpation. Denies neck pain, chest pain, shortness of breath, fever, nausea, vomiting, melena, or hematochezia In the emergency room patient is found to have some EKG changes.Case discussed with Dr. Cirilo Gold earth observations chief scientist cardiology interventionalists. No acute intervention recommended this time based on EKG. Recommend q. 15-minute EKGs x3 to evaluate for acute change. CT scan of the head showed no acute findings are seen within the head or cervical region discogenic degenerative changes are seen throughout the cervical spine. Med rec is done Past History Past Medical History: acute NV, hypertension, other (Chronic back pain. Alcohol abuse) Medications and Allergies Allergies Allergy/AdvReac Type Severity Reaction Status Date / Time Penicillins Allergy Unknown Verified 04/11/21 03:34 Home Medications Medication Instructions Recorded Confirmed Last Taken Type Losartan [Cozaar] 100 mg PO QDAY #60 tablet 01/02/17 11/05/19 11/02/19 Rx tiZANidine [Zanaflex 4mg TAB] 4 mg PO Q8H PRN #21 tablet 07/31/19 11/05/19 11/02/19 Rx Aspirin [Aspirin BABY CHEW TAB] 81 mg PO QDAY #30 tab.chew 11/05/19 Unknown Rx AtorvaSTATin [Lipitor] 20 mg PO QHS #30 tab 11/05/19 Unknown Rx NIFEdipine XL [Procardia Xl] 60 mg PO QDAY #30 tablet 11/05/19 Unknown Rx Active Meds: Active Medications Acetaminophen (Acetaminophen 325 Mg Tab) 650 mg PO Q6H PRN PRN Reason: Pain, Mild (1-3) Aspirin (Aspirin 81 Mg Tab Chew) 81 mg PO QDAY D[facility] Atorvastatin Calcium (Atorvastatin 40 Mg Tab) 40 mg PO QHS D[facility]I Heparin Sodium (Porcine) (Heparin 5,000 Unit/1 Ml Vial) 5,000 unit SUB-Q Q12HR DARI Sodium Chloride (Nacl 0.9% 1000 Ml) 1,000 mls @ 100 mls/hr IV DIRECT DARI Losartan Potassium (Losartan 50 Mg Tab) 100 mg PO QDAY D[facility] Morphine Sulfate (Morphine 4 Mg/1 Ml Inj) 2 mg IV Q5MIN PRN PRN Reason: Chest Pain unrelieved by NTG Nifedipine (Nifedipine Xl 60 Mg Tab) 60 mg PO QDAY [facility] Nitroglycerin (Nitroglycerin 0.4 Mg Tab Subl) 0.4 mg SL Q5M PRN PRN Reason: Chest Pain Sodium Chloride (Sodium Chloride 0.9% 10 Ml Flush Syringe) 10 ml IV PRN PRN PRN Reason: LINE FLUSH Tramadol HCl (Tramadol 50 Mg Tab) 50 mg PO Q6H PRN PRN Reason: Pain, Moderate (4-6) Review of Systems All systems: negative Constitutional: other (Headache, fall, head injury, confusion) Cardiovascular: syncope Exam - Constitutional Vitals: Temp Pulse Resp BP Pulse Ox 98.3 F 55 L 22 176/98 100 04/11/21 03:54 04/11/21 06:04 04/11/21 06:04 04/11/21 06:04 04/11/21 06:04 General appearance: Present: no acute distress, well-nourished - EENT Eyes: Present: PERRL ENT: hearing intact, clear oral mucosa - Neck Neck: Present: supple, normal ROM - Respiratory Respiratory effort: normal Respiratory: bilateral: diminished - Cardiovascular Heart Sounds: Present: S1 & S2. Absent: rub, click - Extremities Extremities: pulses symmetrical, No edema Peripheral Pulses: within normal limits - Abdominal General gastrointestinal: Present: soft, non-tender, non-distended, normal bowel sounds Male genitourinary: Present: normal - Integumentary Integumentary: Present: clear, warm, dry - Musculoskeletal Musculoskeletal: gait normal, strength equal bilaterally - Psychiatric Psychiatric: appropriate mood/affect, intact judgment & insight - Neurologic Neurologic: CNII-XII intact, moves all extremities HEART Score - HEART Score Troponin: Troponin T < 0.010 ng/mL (0.00-0.029) 04/11/21 03:42 Results - Labs CBC & Chem 7: 04/11/21 03:42 04/11/21 03:42 Labs: Laboratory Last Values WBC 6.2 K/mm3 (4.5-11.0) 04/11/21 03:42 RBC 4.68 M/mm3 (3.65-5.03) 04/11/21 03:42 Hgb 14.9 gm/dl (11.8-15.2) 04/11/21 03:42 Hct 44.6 % (35.5-45.6) 04/11/21 03:42 MCV 95 fl (84-94) H 04/11/21 03:42 MCH 32 pg (28-32) 04/11/21 03:42 MCHC 33 % (32-34) 04/11/21 03:42 RDW 13.6 % (13.2-15.2) 04/11/21 03:42 Plt Count 204 K/mm3 (140-440) 04/11/21 03:42 Lymph % (Auto) 32.1 % (13.4-35.0) 04/11/21 03:42 [place] % (Auto) 10.1 % (0.0-7.3) H 04/11/21 03:42 Eos % (Auto) 0.3 % (0.0-4.3) 04/11/21 03:42 Baso % (Auto) 0.7 % (0.0-1.8) 04/11/21 03:42 Lymph # (Auto) 2.0 K/mm3 (1.2-5.4) 04/11/21 03:42 [place] # (Auto) 0.6 K/mm3 (0.0-0.8) 04/11/21 03:42 Eos # (Auto) 0.0 K/mm3 (0.0-0.4) 04/11/21 03:42 Baso # (Auto) 0.0 K/mm3 (0.0-0.1) 04/11/21 03:42 Seg Neutrophils % 56.8 % (40.0-70.0) 04/11/21 03:42 Seg Neutrophils # 3.5 K/mm3 (1.8-7.7) 04/11/21 03:42 PT 12.1 Sec. (12.2-14.9) L 04/11/21 03:42 INR 0.81 (0.87-1.13) L 04/11/21 03:42 APTT 23.1 Sec. (24.2-36.6) L 04/11/21 03:42 Sodium 138 mmol/L (137-145) 04/11/21 03:42 Potassium 3.8 mmol/L (3.6-5.0) 04/11/21 03:42 Chloride 99.7 mmol/L (98-107) 04/11/21 03:42 Carbon Dioxide 26 mmol/L (22-30) 04/11/21 03:42 Anion Gap 16 mmol/L 04/11/21 03:42 BUN 15 mg/dL (9-20) 04/11/21 03:42 Creatinine 1.0 mg/dL (0.8-1.3) 04/11/21 03:42 Estimated GFR > 60 ml/min 04/11/21 03:42 BUN/Creatinine Ratio 15 % 04/11/21 03:42 Glucose 95 mg/dL (75-100) 04/11/21 03:42 Calcium 9.9 mg/dL (8.4-10.2) 04/11/21 03:42 Magnesium 1.70 mg/dL (1.7-2.3) 04/11/21 03:52 Troponin T < 0.010 ng/mL (0.00-0.029) 04/11/21 03:42 Plasma/Serum Alcohol < 0.01 % (0-0.07) 04/11/21 03:42 - Imaging and Cardiology CT Scan - head: report reviewed Assessment and Plan VTE prophylaxis?: Mechanical Plan of care discussed with patient/family: Yes - Patient Problems (1) Syncope Current Visit: Yes Status: Acute Plan to address problem: Admit the patient to the medical telemetry. Aspirin 81 mg p.o. daily. Lipitor 40 mg p.o. daily. Normal saline at the rate of 100 cc/h. Echocardiogram. serial cardiac enzyme. Cardiology consult. Patient is on fall precaution (2) Abnormal EKG Current Visit: Yes Status: Acute Plan to address problem: Aspirin 81 mg p.o. daily. Lipitor 40 mg p.o. daily. Normal saline at the rate of 100 cc/h. Echocardiogram. serial cardiac enzyme. Cardiology consult (3) Daily consumption of alcohol Current Visit: Yes Status: Acute Plan to address problem: Patient counseled regarding quit drinking. Outpatient follow-up with alcohol Anonymous group (4) Scalp hematoma Current Visit: Yes Status: Acute Plan to address problem: We will monitor the patient closely. Recheck CBC in the morning (5) Uncontrolled hypertension Current Visit: Yes Status: Acute Plan to address problem: Losartan 100 mg p.o. daily. Nifedipine 60 mg p.o. daily. We will monitor the blood pressure closely (6) DVT prophylaxis Current Visit: Yes Status: Acute Plan to address problem: SCD for DVT prophylaxis. Pepcid 20 mg p.o. twice daily for GI prophylaxis. Patient is a full code
--- NOTE | 2021-04-11 06:31 | XRay Report ---
Pelvis and left hip 2 views INDICATION: Pain FINDINGS: Moderate degenerative change in left and right hip. Osteophyte femoral head neck junctions. Sacrum appears normal. No displaced fracture. Signer Name: Milton King MD Signed: 04/11/2021 6:27 AM Workstation Name: [id number]
[2021-04-11 07:02] LABS: Basophils % (Auto) 0.6 % (0.0-1.8); Eosinophils % (Auto) 0.2 % (0.0-4.3); Hematocrit 41.4 % (35.5-45.6); Hemoglobin 13.7 gm/dl (11.8-15.2); Lymphocytes % (Auto) 28.2 % (13.4-35.0); Mean Corpuscular HGB Conc 33 % (32-34); Mean Corpuscular Volume 94 fl (84-94); Monocytes # (Auto) 0.6 K/mm3 (0.0-0.8); Monocytes % (Auto) 9.2 % (0.0-7.3); Platelet Count 182 K/mm3 (140-440); Red Blood Count 4.39 M/mm3 (3.65-5.03); Red Cell Distribution Width 13.9 % (13.2-15.2)
[2021-04-11 07:27] LABS: BUN/Creatinine Ratio 20; Blood Urea Nitrogen 16 mg/dL (9-20); Hemolysis Index 6
[2021-04-11] MEDS: ASPIRIN 81 MG TAB CHEW PO SCH (09:36)
[2021-04-11] MEDS: LOSARTAN 50 MG TAB PO SCH (09:36)
[2021-04-11] MEDS ORDERED: HEPARIN 5,000 UNIT/1 ML VIAL SUB-Q SCH (10:00)
--- NOTE | 2021-04-11 13:19 | Consultation ---
History of Present Illness Consult date: 04/11/21 Consult reason: syncope History of present illness: The patient is a 61-year-old man with a history of chronic hypertension, for [facility] he is admittedly poorly compliant with prescribed medical therapy. He was last in this hospital a year and a half ago with severe uncontrolled hypertension in the setting of medication noncompliance. We were not ultimately able to obtain optimal control with losartan 100 and Procardia XL 60. He had a thallium stress test at that admission was negative. On this presentation he states that he stopped taking his medicines a week before he developed a brief syncopal episode, which caused him to fall and hit his head. Syncope occurred in his kitchen at home as he was getting ready for work, not associated with any exertional activity. On his presentation to the hospital, his systolic blood pressure was in the 170s, has remained persistently elevated. There is no chest pain, no shortness of breath, no palpitations, no lower extremity edema. He currently is in the emergency room, looks and feels comfortable in no acute distress. His antihypertensive regimen of losartan and nifedipine XL have been resumed. EKG is normal sinus rhythm with changes of early repolarization, essentially normal ECG. Chest x-ray reveals normal-sized cardiac silhouette and clear lungs. Serial troponin levels x3 are negative. Past History Past Medical History: hypertension, other (Chronic back pain. Alcohol abuse) Medications and Allergies Allergies Allergy/AdvReac Type Severity Reaction Status Date / Time Penicillins Allergy Unknown Verified 04/11/21 03:34 Home Medications Medication Instructions Recorded Confirmed Last Taken Type Losartan [Cozaar] 100 mg PO QDAY #60 tablet 01/02/17 11/05/19 11/02/19 Rx tiZANidine [Zanaflex 4mg TAB] 4 mg PO Q8H PRN #21 tablet 07/31/19 11/05/19 11/02/19 Rx Aspirin [Aspirin BABY CHEW TAB] 81 mg PO QDAY #30 tab.chew 11/05/19 Unknown Rx AtorvaSTATin [Lipitor] 20 mg PO QHS #30 tab 11/05/19 Unknown Rx NIFEdipine XL [Procardia Xl] 60 mg PO QDAY #30 tablet 11/05/19 Unknown Rx Active Meds: Active Medications Acetaminophen (Acetaminophen 325 Mg Tab) 650 mg PO Q6H PRN PRN Reason: Pain, Mild (1-3) Aspirin (Aspirin 81 Mg Tab Chew) 81 mg PO QDAY [facility] Last Admin: 04/11/21 09:36 Dose: 81 mg Documented by: Atorvastatin Calcium (Atorvastatin 40 Mg Tab) 40 mg PO QHS [facility] Sodium Chloride (Nacl 0.9% 1000 Ml) 1,000 mls @ 100 mls/hr IV DIRECT DARI Losartan Potassium (Losartan 50 Mg Tab) 100 mg PO QDAY [facility] Last Admin: 04/11/21 09:36 Dose: 100 mg Documented by: Morphine Sulfate (Morphine 4 Mg/1 Ml Inj) 2 mg IV Q5MIN PRN PRN Reason: Chest Pain unrelieved by NTG Nifedipine (Nifedipine Xl 60 Mg Tab) 60 mg PO QDAY [facility] Nitroglycerin (Nitroglycerin 0.4 Mg Tab Subl) 0.4 mg SL Q5M PRN PRN Reason: Chest Pain Sodium Chloride (Sodium Chloride 0.9% 10 Ml Flush Syringe) 10 ml IV PRN PRN PRN Reason: LINE FLUSH Tramadol HCl (Tramadol 50 Mg Tab) 50 mg PO Q6H PRN PRN Reason: Pain, Moderate (4-6) Review of Systems Cardiovascular: syncope, no chest pain, no orthopnea, no palpitations, no rapid/irregular heart beat, no edema, no lightheadedness, no shortness of breath Physical Examination Vital Signs Temp Pulse Resp BP Pulse Ox 97.8 F 78 19 171/103 98 04/11/21 03:37 04/11/21 03:37 04/11/21 03:37 04/11/21 03:37 04/11/21 03:37 General appearance: no acute distress HEENT: Positive: PERRL Neck: Positive: neck supple Cardiac: Positive: Reg Rate and Rhythm Lungs: Positive: Decreased Breath Sounds Neuro: Positive: Grossly Intact Abdomen: Positive: Soft Male genitourinary: Positive: deferred Skin: Positive: Clear Extremities: Absent: edema Results 04/11/21 06:44 04/11/21 06:44 Coagulation 04/11/21 Range/Units 03:42 PT 12.1 L (12.2-14.9) Sec. INR 0.81 L (0.87-1.13) APTT 23.1 L (24.2-36.6) Sec. CBC 04/11/21 04/11/21 Range/Units 03:42 06:44 WBC 6.2 7.0 (4.5-11.0) K/mm3 RBC 4.68 4.39 (3.65-5.03) M/mm3 Hgb 14.9 13.7 (11.8-15.2) gm/dl Hct 44.6 41.4 (35.5-45.6) % Plt Count 204 182 (140-440) K/mm3 Lymph # (Auto) 2.0 2.0 (1.2-5.4) K/mm3 [place] # (Auto) 0.6 0.6 (0.0-0.8) K/mm3 Eos # (Auto) 0.0 0.0 (0.0-0.4) K/mm3 Baso # (Auto) 0.0 0.0 (0.0-0.1) K/mm3 Comprehensive Metabolic Panel 04/11/21 04/11/21 Range/Units 03:42 06:44 Sodium 138 136 L (137-145) mmol/L Potassium 3.8 3.1 L (3.6-5.0) mmol/L Chloride 99.7 100.9 (98-107) mmol/L Carbon Dioxide 26 24 (22-30) mmol/L BUN 15 16 (9-20) mg/dL Creatinine 1.0 0.8 (0.8-1.3) mg/dL Glucose 95 95 (75-100) mg/dL Calcium 9.9 9.0 (8.4-10.2) mg/dL EKG interpretations - Telemetry EKG Rhythm: Sinus Rhythm Assessment and Plan - Patient Problems (1) Syncope Current Visit: Yes Status: Acute Plan to address problem: 61-year-old man who presents with syncope. Serial ECGs are normal, chest x-ray is normal, serial troponin levels are normal. The only abnormalities were found clinical assessment is severe uncontrolled hypertension, due to patient's c hronic noncompliance with antihypertensive medicines. We will continue telemetry monitoring, obtain an echocardiogram for left ventricular function assessment, and consider a predischarge thallium stress test for optimal cardiac syncope work-up at this time.
[2021-04-11] MEDS: NIFEdipine XL 60 MG TAB PO SCH (13:38)
--- NOTE | 2021-04-11 13:51 | Event Note ---
Date: 04/11/21 Patient with syncope. Cardiology consulted. I have seen and examined him.
[2021-04-11] MEDS ORDERED: POTASSIUM CHLORIDE ER 20 MEQ TAB PO NR (15:00)
[2021-04-11] MEDS: SODIUM CHLORIDE 0.9% 1000 ML 1,000 ML IV SCH (18:05)
[2021-04-12] MEDS: NIFEdipine XL 60 MG TAB PO SCH ×2 (00:34→13:25)
[2021-04-12] MEDS: SODIUM CHLORIDE 0.9% 1000 ML 1,000 ML IV SCH (00:37)
[2021-04-12 05:58] LABS: Hematocrit 41.9 % (35.5-45.6); Mean Corpuscular HGB Conc 33 % (32-34); Mean Corpuscular Volume 95 fl (84-94); Platelet Count 185 K/mm3 (140-440); Red Blood Count 4.41 M/mm3 (3.65-5.03); Red Cell Distribution Width 13.5 % (13.2-15.2)
[2021-04-12 06:35] LABS: BUN/Creatinine Ratio 20; Blood Urea Nitrogen 18 mg/dL (9-20); Hemolysis Index 7
[2021-04-12] MEDS ORDERED: REGADENOSON 0.4 MG/5 ML INJ IV ONE (10:10)
[2021-04-12] MEDS: ASPIRIN 81 MG TAB CHEW PO SCH (13:24)
[2021-04-12] MEDS: LOSARTAN 50 MG TAB PO SCH (13:25)
--- NOTE | 2021-04-12 14:04 | Progress Note ---
Assessment and Plan - Patient Problems (1) Syncope Current Visit: Yes Status: Acute Plan to address problem: 61-year-old man who presents with syncope. Serial ECGs are normal, chest x-ray is normal, serial troponin levels are normal. The only abnormalities were found clinical assessment is severe uncontrolled hypertension, due to patient's chronic noncompliance with antihypertensive medicines. His hypertension is better controlled today, on resumption of his losartan and Procardia XL. Lexiscan thallium stress test is normal. Echocardiogram shows left ventricular ejection fraction 45 to 50%. No further inpatient cardiac work-up is indicated, we will recommend outpatient cardiac follow-up and consideration of a 30-day event monitor if indicated. Patient is stable for cardiac discharge. Subjective Date of service: 04/12/21 Interval history: Patient is comfortable, no chest pain, no shortness of breath, no dizziness or further syncope. On further assessment, he states that he has been had recent problems with his left hip, which has caused him unsteady gait. He is uncertain if this was the reason for his fall or whether he actually blacked out. Cardiac work-up so far echocardiogram shows left ventricular systolic function very mildly reduced at 45 to 50%. A Lexiscan thallium stress test today showed normal perfusion, no significant defects, normal study. Left ventricular ejection fraction on the gated SPECT study was normal at 58%. No arrhythmias have been reported on continuous telemetry monitoring. Objective Vital Signs Temp Pulse Resp BP BP Pulse Ox 04/12/21 13:25 87 04/12/21 12:00 98.7 F 86 18 141/95 97 04/12/21 11:31 100 H 14 160/106 96 04/12/21 11:21 101 H 13 160/106 97 04/12/21 11:11 117 H 15 153/99 98 04/12/21 11:01 101 H 15 158/102 96 04/12/21 10:51 102 H 13 158/102 95 04/12/21 10:41 102 H 15 150/102 96 04/12/21 10:31 100 H 15 158/105 96 04/12/21 10:21 102 H 15 158/105 96 04/12/21 10:11 101 H 15 149/100 97 04/12/21 10:01 99 H 13 159/102 96 04/12/21 09:51 103 H 16 159/102 95 04/12/21 09:41 100 H 15 146/97 96 04/12/21 09:31 100 H 14 155/102 96 04/12/21 09:21 102 H 19 147/97 04/12/21 09:11 99 H 15 147/97 96 04/12/21 09:01 97 H 13 147/97 96 04/12/21 08:51 96 H 15 147/97 96 04/12/21 08:41 98 H 14 147/97 96 04/12/21 08:33 89 147/97 04/12/21 08:21 114 H 16 147/97 94 04/12/21 08:11 99 H 16 132/88 96 04/12/21 08:01 98.6 F 82 18 167/105 94 04/12/21 08:00 97.6 F 81 18 152/95 96 04/12/21 07:51 101 H 13 132/88 95 04/12/21 07:41 100 H 14 144/94 94 04/12/21 07:31 103 H 17 144/94 95 04/12/21 07:24 109 H 18 04/12/21 03:46 98.3 F 58 L 18 190/107 96 04/12/21 00:02 99.2 F 68 18 167/108 97 04/11/21 23:25 98 04/11/21 21:57 98.4 F 72 16 168/95 96 04/11/21 21:07 95 04/11/21 21:03 74 14 168/96 99 04/11/21 21:01 69 22 168/96 99 04/11/21 21:00 98.5 F 04/11/21 20:45 71 16 164/101 99 04/11/21 20:31 76 16 164/101 97 04/11/21 20:15 71 14 168/103 99 04/11/21 20:01 67 17 164/101 97 04/11/21 19:45 189/162 98 04/11/21 19:31 189/162 97 04/11/21 19:15 189/162 97 04/11/21 19:01 189/162 97 04/11/21 18:45 173/107 99 04/11/21 18:31 173/107 98 04/11/21 18:15 173/107 97 04/11/21 18:01 173/107 98 04/11/21 17:45 146/85 99 04/11/21 17:31 146/85 97 04/11/21 17:15 146/85 98 04/11/21 17:01 146/85 97 04/11/21 16:45 146/86 97 04/11/21 16:31 146/86 98 04/11/21 16:15 165/93 98 04/11/21 16:01 165/93 97 04/11/21 15:45 165/93 99 04/11/21 15:31 165/93 99 04/11/21 15:15 165/93 98 04/11/21 15:11 68 16 165/93 165/93 99 - Physical Examination General: Appears Well, No Apparent Distress HEENT: Positive: PERRL Neck: Positive: neck supple Cardiac: Positive: Reg Rate and Rhythm Lungs: Positive: clear to auscultation Neuro: Positive: Grossly Intact Abdomen: Positive: Soft Skin: Positive: Clear Extremities: Absent: edema - Labs and Meds CBC 04/12/21 Range/Units 04:24 WBC 7.0 (4.5-11.0) K/mm3 RBC 4.41 (3.65-5.03) M/mm3 Hgb 14.0 (11.8-15.2) gm/dl Hct 41.9 (35.5-45.6) % Plt Count 185 (140-440) K/mm3 Comprehensive Metabolic Panel 04/12/21 Range/Units 04:24 Sodium 138 (137-145) mmol/L Potassium 3.4 L (3.6-5.0) mmol/L Chloride 102.9 (98-107) mmol/L Carbon Dioxide 21 L (22-30) mmol/L BUN 18 (9-20) mg/dL Creatinine 0.9 (0.8-1.3) mg/dL Glucose 89 (75-100) mg/dL Calcium 9.0 (8.4-10.2) mg/dL
--- NOTE | 2021-04-12 14:40 | Discharge Summary ---
Providers - Providers Date of Admission: 04/11/21 06:00 Date of discharge: 04/12/21 Attending physician: SELVIN FRANKLIN 04/11/21 Consult to Cardiac Rehabilitation [CONS] Routine Reason For Exam: Phase I 04/11/21 05:16 Consult to Physician [CONS] Urgent Comment: Consulting Provider: MICHAEL RIVERA Physician Instructions: Reason For Exam: syncope vs fall, abnormal ekg 04/11/21 06:00 Consult to Cardiology [CONS] Routine Consulting Provider: MICHAEL RIVERA Reason For Exam: syncope Primary care physician: CAUL DRESSER Hospitalization Condition: Stable Disposition: 01 HOME / SELF CARE / HOMELESS Exam - Constitutional Vitals: Temp Pulse Resp BP Pulse Ox 98.7 F 87 18 141/95 97 04/12/21 12:00 04/12/21 13:25 04/12/21 12:00 04/12/21 12:00 04/12/21 12:00 Plan Activity: advance as tolerated Weight Bearing Status: Weight Bear as Tolerated Diet: low fat, low salt Special Instructions: record daily BP diary Follow up with: YO ZIEGLER MD [Primary Care Provider] - 3-5 Days DARIEL HYDE MD [Staff Physician] - 7 Days
--- NOTE | 2021-04-12 18:56 | Electrocardiograph Report ---
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
--- NOTE | 2021-04-12 18:57 | Electrocardiograph Report ---
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
--- NOTE | 2021-04-12 18:57 | Electrocardiograph Report ---
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
--- NOTE | 2021-04-12 18:58 | Electrocardiograph Report ---
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
--- NOTE | 2021-04-12 19:19 | Electrocardiograph Report ---
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
--- NOTE | 2021-04-13 01:35 | Treadmill Report ---
DATE OF SERVICE: 04/12/2021 THALLIUM STRESS TEST REPORT Left ventricular chamber size is with normal spread. Perfusion study demonstrates homogeneous uptake of the tracer in all segments, no significant defects identified. Gated analysis demonstrates normal left ventricular systolic function, ejection fraction 58%. CONCLUSION: Normal myocardial perfusion study. TID: [id number] RECEIPT: [id number] RUDY/KARLOS/VIS
[2021-04-13 10:30] VITALS: BP 138/87
--- NOTE | 2021-04-14 11:24 | Event Note ---
Date: 04/14/21 Patient called the office to inquire about prescriptions he received at discharge. Upon chart review it was seen that nifedipine 60 mg daily was printed. Patient did not recall being and did physical prescription. Confirmed that her preferred pharmacy is [facility] on [address]. Prescription sent electronically to pharmacy.
--- NOTE | 2021-04-14 12:33 | Nuclear Medicine Report ---
APPROVED REPORT Exam: Nuclear Stress Test Indication: Chest pain Ht: 5 ft 8 in Wt: 165 lbs BSA: 1.88 m2 BMI: 25.08 Rhythm: NSR Stress Test Details Stress Test: Pharmacologic stress testing performed using 0.4 mg of regadenoson per 5 mL given IV over 10 seconds. Reason for pharmacologic stress test: physical limitation. HR Resting HR: 81 bpm Max HR Achieved: 111 bpm Max Heart Rate (APMHR): 158 bpm Target HR (85% APMHR): 134 bpm % of APMHR: 70 Recovery HR: 89 bpm HR response to stress: Normal HR response to stress BP Resting BP: 144/96 mmHg Max BP: 158/103 mmHg Recovery BP: 151/97 mmHg BP response to stress: Normal blood pressure response to stress. ECG Resting ECG: Sinus Rhythm Stress ECG: Sinus Tachycardia ST Change: None Arrhythmia: None Recovery ECG: Sinus Rhythm Recovery ST Change: None Recovery Arrhythmia: None Clinical Reason for Termination: Completed protocol Stress Symptoms: None Stress ECG Conclusion No chest pain, no ST changes with pharmacologic stress. Myocardial perfusion images are pending. NM EXAM: Myocardial Perfusion REST/STRESS Imaging Protocol: Rest Tc-99m/Stress Tc-99m 1 day Resting Data Rest SPECT myocardial perfusion imaging was performed in supine position 45 minutes following the intravenous injection of 10 mCi of Tc-99m Myoview. Time of rest injection: 0645 Pharmacologic Stress Pharmacologic stress test was performed by injecting Regadenoson 0.4 mg IV push followed by the intravenous injection of 28 mCi of Tc-99m Myoview. Time of stress injection: 1050 Gated Stress SPECT was performed 30 minutes after stress injection. The images were gated to evaluate regional wall motion and calculate left ventricular ejection fraction. Study Data TID = 1.08. Perfusion Wall Motion Normal left ventricular systolic function, normal wall motion Nuclear Conclusion ECG Findings: negative for ischemia Clinical Findings: negative for ischemia Nuclear Findings: negative for ischemia Left Ventricular Function: normal Risk Study: low Normal myocardial perfusion study, normal left ventricular systolic function, ejection fraction 58%. Normal study. Conclusion No chest pain, no ST changes with pharmacologic stress. Myocardial perfusion images are pending.
== END 2021-04-12 17:02 | disposition home or self-care (01) ==
LOC: ED 03:12 → 4A 06:00
PROVIDERS: ADMIT Hospitalist; ATTEND Internal Medicine
DX: R55 Syncope and collapse (principal); R94.31 Abnormal electrocardiogram [ECG] [EKG]; F10.129 Alcohol abuse with intoxication, unspecified; S00.03XA Contusion of scalp, initial encounter; I10 Essential (primary) hypertension; I25.2 Old myocardial infarction; G89.29 Other chronic pain; M54.9 Dorsalgia, unspecified; Z79.82 Long term (current) use of aspirin; Z91.14 Patient's other noncompliance with medication regimen; W19.XXXA Unspecified fall, initial encounter; Y92.89 Other specified places as the place of occurrence of the external cause; Y93.89 Activity, other specified; Y99.8 Other external cause status
CPT/HCPCS: 36415; 70450; 71045; 72125; 73502; 78452; 80048; 83735; 84484; 85025; 85027; 85610; 85730; 93005; 93017; 93306; 96361; 96372; 96374; 96375; A9270; A9502; G0378; J1885; J2270; J2785; J7030; 80320; G0480

== ENCOUNTER 2021-11-22 05:18 | Observation (INO) | payer OTHER ==
[2021-11-22] MEDS ORDERED: diphenhydrAMINE 50 MG/ML VIAL IV ONE (05:28)
[2021-11-22] MEDS ORDERED: HALOPERIDOL LACTATE 5 MG/1 ML INJ IM ONE (05:28)
--- NOTE | 2021-11-22 05:31 | Event Note ---
Date: 11/22/21 Pt brought in by EMS with agitation after he was suspected with seizure. Pt given Benadryl and Haldol to restrain him from hurting himself. Pt will be seen and fully examined with treatment by incoming physician.
[2021-11-22] MEDS ORDERED: SODIUM CHLORIDE 0.9% 1000 ML 1,000 ML IV ONE ×3 (07:05→12:00)
--- NOTE | 2021-11-22 07:26 | Emergency Department Report ---
ED Altered Mental Status HPI - General Chief Complaint: Altered Mental Status Stated Complaint: AMS, COMBATIVE PUI?: No Time Seen by Provider: 11/22/21 06:22 Source: patient, EMS Mode of arrival: Stretcher Limitations: Altered Mental Status - History of Present Illness Initial Comments: Of note, pt was seen/evaluated by Dr. Barry @ 05:29am, and signed out to me at 06:11am secondary to change in provider shift time. Per his verbal report, the patient was agitated and altered and he had given the patient Haldol and Benadryl for sedation. The pt is a 61yo M w/multiple documented medical comorbidities, bibems for evaluation of AMS. Of note, due to pt's current mental status, the patient is unable to provide additional information with respect to HPI. HPI is provided by the patient's who is currently at his bedside. Per the per 's report, the patient is unemployed but he typically wakes up at 3:30 AM along w ith her, as she sets her alarm clock for the time and has to wake up for work at 5 AM. She states when she awoke, the room was disheveled and the patient did not wake up as he normally would. She states he seemed very confused. She states that he had 2 similar episodes in September of the same behavior and he was taken to [facility] as well as [facility], for the first and second visits, respectively. She states "he seen a neurologist and a rock crushing machine operator but no one can figure out what was going on. They thought he was doing alcohol because he is a heavy alcohol drinker in the given medicine for withdrawing from alcohol and he got better. They said at [facility] they thought he had a seizure." She states the patient has not consumed alcohol since September 15, 2021. She states the patient was in his usual state of health last night before they went to bed and had no complaints. No new medications, no illicit drug usage. In reviewing of the chart, patient had received Haldol 5 mg intramuscularly and Benadryl 50 mg intramuscularly. MD Complaint: altered mental status, confusion -: This morning Severity: Unable to Determine Consistency of Symptoms: constant Context: alcohol abuse, drug abuse, history of similar presen Associated Symptoms: denies other symptoms - Related Data Home Medications Medication Instructions Recorded Confirmed Last Taken Cyclobenzaprine [Flexeril 10 MG 10 mg PO HS PRN 04/11/21 04/11/21 Unknown TAB] Losartan/Hydrochlorothiazide 1 each PO QDAY 04/11/21 04/11/21 Unknown [Losartan-Hctz 100-25 mg Tab] Previous Rx's Medication Instructions Recorded Last Taken Type NIFEdipine XL [Procardia Xl] 60 mg PO QDAY tablet 04/12/21 Unknown Rx NIFEdipine XL [Procardia Xl] 60 mg PO QDAY 30 Days #30 tablet 04/14/21 Unknown Rx Allergies Allergy/AdvReac Type Severity Reaction Status Date / Time Penicillins Allergy Unknown Verified 04/11/21 03:34 ED Review of Systems ROS: Stated complaint: AMS, COMBATIVE Other details as noted in HPI Comment: Unobtainable due to pts medical conditions Constitutional: other (unable to obtain due to AMS) ENT: other (unable to obtain due to AMS) Respiratory: other (unable to obtain due to AMS) Cardiovascular: other (unable to obtain due to AMS) Endocrine: other (unable to obtain due to AMS) Genitourinary: other (unable to obtain due to AMS) Musculoskeletal: other (unable to obtain due to AMS) Skin: other (unable to obtain due to AMS) Neurological: as per HPI Psychiatric: other (unable to obtain due to AMS) Hematological/Lymphatic: other (unable to obtain due to AMS) ED Past Medical Hx - Past Medical History Hx Hypertension: Yes Hx Heart Attack/AMI: Yes Additional medical history: chronic back pain - Surgical History Hx Open Heart Surgery: Yes - Social History Smoking Status: Never Smoker Substance Use Type: Alcohol - Medications Home Medications: Home Medications Medication Instructions Recorded Confirmed Last Taken Type Cyclobenzaprine [Flexeril 10 MG 10 mg PO HS PRN 04/11/21 04/11/21 Unknown History TAB] Losartan/Hydrochlorothiazide 1 each PO QDAY 04/11/21 04/11/21 Unknown History [Losartan-Hctz 100-25 mg Tab] NIFEdipine XL [Procardia Xl] 60 mg PO QDAY tablet 04/12/21 Unknown Rx NIFEdipine XL [Procardia Xl] 60 mg PO QDAY 30 Days #30 tablet 04/14/21 Unknown Rx ED Physical Exam - General Limitations: Altered Mental Status General appearance: other (pt is currently in physical restraints; observed moving all extremities, asking this provider "Can you get me out of these!?!") - Head Head exam: Present: atraumatic, normocephalic - Eye Eye exam: Present: normal appearance, PERRL, EOMI - ENT ENT exam: Present: normal exam, mucous membranes moist, normal external ear exam - Neck Neck exam: Present: normal inspection, full ROM. Absent: tenderness, meningismus, lymphadenopathy, thyromegaly - Respiratory Respiratory exam: Present: normal lung sounds bilaterally. Absent: respiratory distress, wheezes, rales, rhonchi, stridor, chest wall tenderness, accessory muscle use, decreased breath sounds, prolonged expiratory - Cardiovascular Cardiovascular Exam: Present: regular rate, normal rhythm, normal heart sounds. Absent: bradycardia, tachycardia, irregular rhythm, systolic murmur, diastolic murmur, rubs, gallop, clicks, JVD, S3, S4 - GI/Abdominal GI/Abdominal exam: Present: soft, rebound, rigid, normal bowel sounds, hyperactive bowel sounds, bruit, hernia. Absent: distended, tenderness, guarding, hypoactive bowel sounds, organomegaly, mass, pulsatile mass - Extremities Exam Extremities exam: Present: normal inspection, full ROM, tenderness, normal capillary refill, pedal edema. Absent: joint swelling - Back Exam Back exam: Present: normal inspection, full ROM, tenderness, CVA tenderness (L). Absent: muscle spasm, paraspinal tenderness, vertebral tenderness - Neurological Exam Neurological exam: Present: altered, other (unable to test gait secondary to patient's altered mental status ) - Skin Skin exam: Present: warm, dry, intact, normal color. Absent: rash, cyanosis, diaphoretic, erythema, urticaria, vesicles, petechiae, pallor, abrasion, ecchymosis ED Course Vital Signs 11/22/21 11/22/21 11/22/21 05:50 06:01 06:15 Pulse Rate 111 H 139 H 128 H Respiratory 22 24 37 H Rate Blood Pressure 132/91 132/91 O2 Sat by Pulse 98 98 97 Oximetry 11/22/21 11/22/21 11/22/21 06:31 06:45 07:01 Pulse Rate 87 123 H 122 H Respiratory 28 H 33 H 22 Rate Blood Pressure 172/96 172/96 144/98 O2 Sat by Pulse 98 96 96 Oximetry 11/22/21 11/22/21 11/22/21 07:15 07:31 07:45 Pulse Rate 115 H 122 H 101 H Respiratory 26 H 18 20 Rate Blood Pressure 144/98 152/86 152/86 O2 Sat by Pulse 97 97 96 Oximetry 11/22/21 11/22/21 11/22/21 08:01 08:15 08:30 Pulse Rate 109 H 121 H 98 H Respiratory 22 24 28 H Rate Blood Pressure 156/88 156/88 156/88 O2 Sat by Pulse 97 98 96 Oximetry 11/22/21 11/22/21 11/22/21 08:45 09:01 09:15 Pulse Rate 91 H 91 H 95 H Respiratory 27 H 23 29 H Rate Blood Pressure 143/78 147/86 128/77 O2 Sat by Pulse 94 95 91 Oximetry 11/22/21 11/22/21 11/22/21 09:31 09:45 10:01 Pulse Rate 86 98 H 94 H Respiratory 20 21 21 Rate Blood Pressure 133/98 197/104 144/82 O2 Sat by Pulse 91 96 97 Oximetry 11/22/21 11/22/21 11/22/21 10:08 10:15 10:31 Pulse Rate 83 81 Respiratory 21 22 Rate Blood Pressure 114/82 127/85 O2 Sat by Pulse 98 97 97 Oximetry 11/22/21 11/22/21 11/22/21 10:45 11:01 11:15 Pulse Rate 83 87 88 Respiratory 19 19 20 Rate Blood Pressure 135/89 131/93 140/86 O2 Sat by Pulse 96 96 97 Oximetry 11/22/21 11/22/21 11/22/21 11:30 11:45 12:01 Pulse Rate 92 H 93 H 121 H Respiratory 19 20 29 H Rate Blood Pressure 136/96 140/86 119/89 O2 Sat by Pulse 97 96 100 Oximetry 11/22/21 11/22/21 11/22/21 12:15 12:31 12:45 Pulse Rate 84 80 88 Respiratory 23 22 22 Rate Blood Pressure 136/96 139/87 130/76 O2 Sat by Pulse 96 98 98 Oximetry 11/22/21 11/22/21 13:01 13:15 Pulse Rate 87 97 H Respiratory 22 25 H Rate Blood Pressure 152/77 152/80 O2 Sat by Pulse 96 97 Oximetry - Lab Data Result diagrams: 11/22/21 07:10 11/22/21 07:10 Lab Results 0611/22/21 11/22/21 Range/Units 06:55 06:57 07:10 WBC 8.8 (4.5-11.0) K/mm3 RBC 4.82 (3.65-5.03) M/mm3 Hgb 14.9 (11.8-15.2) gm/dl Hct 43.9 (35.5-45.6) % MCV 91 (84-94) fl MCH 31 (28-32) pg MCHC 34 (32-34) % RDW 13.7 (13.2-15.2) % Plt Count 194 (140-440) K/mm3 Lymph % (Auto) 15.8 (13.4-35.0) % [place] % (Auto) 6.9 (0.0-7.3) % Eos % (Auto) 0.0 (0.0-4.3) % Baso % (Auto) 0.3 (0.0-1.8) % Lymph # (Auto) 1.4 (1.2-5.4) K/mm3 [place] # (Auto) 0.6 (0.0-0.8) K/mm3 Eos # (Auto) 0.0 (0.0-0.4) K/mm3 Baso # (Auto) 0.0 (0.0-0.1) K/mm3 Seg Neutrophils % 77.0 H (40.0-70.0) % Seg Neutrophils # 6.8 (1.8-7.7) K/mm3 D-Dimer (0-234) ng/mlDDU Sodium (137-145) mmol/L Potassium (3.6-5.0) mmol/L Chloride (98-107) mmol/L Carbon Dioxide (22-30) mmol/L Anion Gap mmol/L BUN (9-20) mg/dL Creatinine (0.8-1.3) mg/dL Estimated GFR ml/min BUN/Creatinine Ratio % Glucose (75-100) mg/dL Lactic Acid (0.7-2.0) mmol/L Calcium (8.4-10.2) mg/dL Total Bilirubin (0.1-1.2) mg/dL AST (5-40) units/L ALT (7-56) units/L Alkaline Phosphatase (35-129) units/L Total Protein (6.3-8.2) g/dL Albumin (3.9-5) g/dL Albumin/Globulin Ratio % Urine Color Colorless (Yellow) Urine Turbidity Clear (Clear) Urine pH 5.0 (5.0-7.0) Ur Specific [place] 1.035 H (1.003-1.030) Urine Protein <15 mg/dl (Negative) mg/dL Urine Glucose (UA) Neg (Negative) mg/dL Urine Ketones Neg (Negative) mg/dL Urine Blood Sm (Negative) Urine Nitrite Neg (Negative) Urine Bilirubin Neg (Negative) Urine Urobilinogen < 2.0 (<2.0) mg/dL Ur Leukocyte Esterase Neg (Negative) Urine WBC (Auto) < 1.0 (0.0-6.0) /HPF Urine RBC (Auto) 2.0 (0.0-6.0) /HPF Urine Mucus Few /HPF Salicylates (2.8-20.0) mg/dL Urine Opiates Screen Negative Urine Methadone Screen Negative Acetaminophen (10.0-30.0) ug/mL Ur Barbiturates Screen Negative Ur Phencyclidine Scrn Negative Ur Amphetamines Screen Negative U Benzodiazepines Scrn Negative Urine Cocaine Screen Negative U Marijuana (THC) Screen Positive Drugs of Abuse Note Disclamer Plasma/Serum Alcohol (0-0.07) % 11/22/21 11/22/21 11/22/21 Range/Units 07:10 07:10 07:10 WBC (4.5-11.0) K/mm3 RBC (3.65-5.03) M/mm3 Hgb (11.8-15.2) gm/dl Hct (35.5-45.6) % MCV (84-94) fl MCH (28-32) pg MCHC (32-34) % RDW (13.2-15.2) % Plt Count (140-440) K/mm3 Lymph % (Auto) (13.4-35.0) % [place] % (Auto) (0.0-7.3) % Eos % (Auto) (0.0-4.3) % Baso % (Auto) (0.0-1.8) % Lymph # (Auto) (1.2-5.4) K/mm3 [place] # (Auto) (0.0-0.8) K/mm3 Eos # (Auto) (0.0-0.4) K/mm3 Baso # (Auto) (0.0-0.1) K/mm3 Seg Neutrophils % (40.0-70.0) % Seg Neutrophils # (1.8-7.7) K/mm3 D-Dimer (0-234) ng/mlDDU Sodium 138 (137-145) mmol/L Potassium 3.4 L (3.6-5.0) mmol/L Chloride 104.5 (98-107) mmol/L Carbon Dioxide 17 L (22-30) mmol/L Anion Gap 20 mmol/L BUN 14 (9-20) mg/dL Creatinine 1.1 (0.8-1.3) mg/dL Estimated GFR > 60 ml/min BUN/Creatinine Ratio 13 % Glucose 111 H (75-100) mg/dL Lactic Acid (0.7-2.0) mmol/L Calcium 9.8 (8.4-10.2) mg/dL Total Bilirubin 0.20 (0.1-1.2) mg/dL AST 20 (5-40) units/L ALT 13 (7-56) units/L Alkaline Phosphatase 94 (35-129) units/L Total Protein 8.2 (6.3-8.2) g/dL Albumin 4.3 (3.9-5) g/dL Albumin/Globulin Ratio 1.1 % Urine Color (Yellow) Urine Turbidity (Clear) Urine pH (5.0-7.0) Ur Specific [place] (1.003-1.030) Urine Protein (Negative) mg/dL Urine Glucose (UA) (Negative) mg/dL Urine Ketones (Negative) mg/dL Urine Blood (Negative) Urine Nitrite (Negative) Urine Bilirubin (Negative) Urine Urobilinogen (<2.0) mg/dL Ur Leukocyte Esterase (Negative) Urine WBC (Auto) (0.0-6.0) /HPF Urine RBC (Auto) (0.0-6.0) /HPF Urine Mucus /HPF Salicylates < 0.3 L (2.8-20.0) mg/dL Urine Opiates Screen Urine Methadone Screen Acetaminophen (10.0-30.0) ug/mL Ur Barbiturates Screen Ur Phencyclidine Scrn Ur Amphetamines Screen U Benzodiazepines Scrn Urine Cocaine Screen U Marijuana (THC) Screen Drugs of Abuse Note Plasma/Serum Alcohol < 0.01 (0-0.07) % 11/22/21 11/22/21 11/22/21 Range/Units 07:10 07:10 07:10 WBC (4.5-11.0) K/mm3 RBC (3.65-5.03) M/mm3 Hgb (11.8-15.2) gm/dl Hct (35.5-45.6) % MCV (84-94) fl MCH (28-32) pg MCHC (32-34) % RDW (13.2-15.2) % Plt Count (140-440) K/mm3 Lymph % (Auto) (13.4-35.0) % [place] % (Auto) (0.0-7.3) % Eos % (Auto) (0.0-4.3) % Baso % (Auto) (0.0-1.8) % Lymph # (Auto) (1.2-5.4) K/mm3 [place] # (Auto) (0.0-0.8) K/mm3 Eos # (Auto) (0.0-0.4) K/mm3 Baso # (Auto) (0.0-0.1) K/mm3 Seg Neutrophils % (40.0-70.0) % Seg Neutrophils # (1.8-7.7) K/mm3 D-Dimer 459.08 H (0-234) ng/mlDDU Sodium (137-145) mmol/L Potassium (3.6-5.0) mmol/L Chloride (98-107) mmol/L Carbon Dioxide (22-30) mmol/L Anion Gap mmol/L BUN (9-20) mg/dL Creatinine (0.8-1.3) mg/dL Estimated GFR ml/min BUN/Creatinine Ratio % Glucose (75-100) mg/dL Lactic Acid 6.10 H* (0.7-2.0) mmol/L Calcium (8.4-10.2) mg/dL Total Bilirubin (0.1-1.2) mg/dL AST (5-40) units/L ALT (7-56) units/L Alkaline Phosphatase (35-129) units/L Total Protein (6.3-8.2) g/dL Albumin (3.9-5) g/dL Albumin/Globulin Ratio % Urine Color (Yellow) Urine Turbidity (Clear) Urine pH (5.0-7.0) Ur Specific [place] (1.003-1.030) Urine Protein (Negative) mg/dL Urine Glucose (UA) (Negative) mg/dL Urine Ketones (Negative) mg/dL Urine Blood (Negative) Urine Nitrite (Negative) Urine Bilirubin (Negative) Urine Urobilinogen (<2.0) mg/dL Ur Leukocyte Esterase (Negative) Urine WBC (Auto) (0.0-6.0) /HPF Urine RBC (Auto) (0.0-6.0) /HPF Urine Mucus /HPF Salicylates (2.8-20.0) mg/dL Urine Opiates Screen Urine Methadone Screen Acetaminophen 5.0 L (10.0-30.0) ug/mL Ur Barbiturates Screen Ur Phencyclidine Scrn Ur Amphetamines Screen U Benzodiazepines Scrn Urine Cocaine Screen U Marijuana (THC) Screen Drugs of Abuse Note Plasma/Serum Alcohol (0-0.07) % - EKG Data -: EKG Interpreted by Me - Radiology Data Radiology results: report reviewed - Medical Decision Making 61-year-old male with multiple medical comorbidities presents for evaluation of altered mental status and lactic acidosis, etiology unclear at this time. Patient has been observed for several hours and has not returned to his mental status baseline. He has been accepted by Dr. Dubon, admitting hospitalist, to the hospitalist service for further management and definitive care. Critical care attestation.: If time is entered above; I have spent that time in minutes in the direct care of this critically ill patient, excluding procedure time. ED Disposition Condition: Stable
[2021-11-22 07:27] LABS: Basophils % (Auto) 0.3 % (0.0-1.8); Hematocrit 43.9 % (35.5-45.6); Hemoglobin 14.9 gm/dl (11.8-15.2); Lymphocytes # (Auto) 1.4 K/mm3 (1.2-5.4); Lymphocytes % (Auto) 15.8 % (13.4-35.0); Mean Corpuscular HGB Conc 34 % (32-34); Mean Corpuscular Volume 91 fl (84-94); Monocytes # (Auto) 0.6 K/mm3 (0.0-0.8); Monocytes % (Auto) 6.9 % (0.0-7.3); Platelet Count 194 K/mm3 (140-440); Red Blood Count 4.82 M/mm3 (3.65-5.03); Red Cell Distribution Width 13.7 % (13.2-15.2)
[2021-11-22] MEDS ORDERED: LORazepam 2 MG/ML VIAL IV ONE (07:31)
[2021-11-22 07:46] LABS: Alanine Aminotransferase 13 units/L (7-56); Albumin 4.3 g/dL (3.9-5); BUN/Creatinine Ratio 13; Blood Urea Nitrogen 14 mg/dL (9-20); Calcium 9.8 mg/dL (8.4-10.2); Hemolysis Index 25
--- NOTE | 2021-11-22 08:22 | XRay Report ---
CHEST 1 VIEW 11/22/2021 7:56 AM INDICATION / CLINICAL INFORMATION: altered mental status. COMPARISON: 04/11/2021 FINDINGS: SUPPORT DEVICES: None. HEART / MEDIASTINUM: No significant abnormality. LUNGS / PLEURA: There are low lung volumes. There is mild venous congestion. No focal infiltrate is s een. No pneumothorax. ADDITIONAL FINDINGS: No significant additional findings. IMPRESSION: 1. There are low lung volumes. There is mild venous congestion. Signer Name: Wil Pérez MD Signed: 11/22/2021 8:18 AM Workstation Name: [id number]
--- NOTE | 2021-11-22 09:12 | Cat Scan Report ---
] CT BRAIN: 11/22/2021 INDICATION / CLINICAL INFORMATION: altered mental status. COMPARISON: CT brain 04/11/2021 FINDINGS: BRAIN/INTRACRANIAL STRUCTURES: Unenhanced CT images of the brain demonstrate no evidence of acute abn ormality. Ventricles and sulci are prominent in size, consistent with diffuse cerebral atrophy. There is no evidence of acute ischemic injury, hemorrhage, or mass. There are no abnormal extra-axial fluid collections. EXTRACRANIAL STRUCTURES: Unremarkable. IMPRESSION: No acute abnormality. No change when compared to 04/11/2021. All CT scans at this location are performed using dose reduction to ALARA by means of automated expos ure control. Signer Name: Jose Collins MD Signed: 11/22/2021 9:08 AM Workstation Name: [id number]
--- NOTE | 2021-11-22 09:19 | Cat Scan Report ---
CTA CHEST WITH CONTRAST INDICATION / CLINICAL INFORMATION: elev ddimer; palpitations, altered; eval for PE. TECHNIQUE: Axial CT images were obtained through the chest after injection of 100 cc of Omnipaque 350 IV contrast. 3 plane MIP and/or 3D reconstructions were produced. All CT scans at this location are performed using CT dose reduction for ALARA by means of automated exposure control. COMPARISON: None available. FINDINGS: PULMONARY EMBOLUS: None seen. THORACIC AORTA: No significant abnormality. HEART: No significant abnormality. CORONARY ARTERY CALCIFICATION: Present -- Mild. MEDIASTINUM / STEPH: No significant abnormality. PLEURA: No pleural effusion. No pneumothorax. LUNGS: No acute air space or interstitial disease. No suspicious pulmonary lesion is detected. ADDITIONAL FINDINGS: Mild bilateral gynecomastia. UPPER ABDOMEN: No acute findings. SKELETAL STRUCTURES: No significant osseous abnormality. IMPRESSION: 1. No CT evidence for pulmonary embolism. 2. Lungs clear. Signer Name: Dwaine Cottrell Jr, MD Signed: 11/22/2021 9:14 AM Workstation Name: [id number]
[2021-11-22 09:56] LABS: Bilirubin,Urine NEG (Negative); Blood,Urine SM (Negative); Color,Urine Colorless (Yellow); Mucus,Urine FEW /HPF; Protein,Urine <15 mg/dL mg/dL (Negative); Urobilinogen,Urine < 2.0 mg/dL (<2.0)
[2021-11-22 09:59] LABS: WBC,Urine < 1.0 /HPF (0.0-6.0)
[2021-11-22 10:03] LABS: Amphetamine Screen,Urine Negative; Benzodiazepines Screen,Urine Negative; Cocaine Screen,Urine Negative; Methadone Screen,Urine Negative; Opiate Screen,Urine Negative
[2021-11-22 10:16] LABS: Cannabinoid Screen,Urine Positive
--- NOTE | 2021-11-22 12:05 | History and Physical Report ---
History of Present Illness Chief complaint: He is confused and shaking History of present illness: 61 YO Male with HTN, HLD, CAD S/P CABG, ETOH Dependence presents to ED for evaluation. Patient is confused and agitated at time of evaluation and is unable to provide history. Patient history provided by EMS staff ED staff, as well as the patient's who was at bedside during exam and interview. As per the patient has experienced increased confusion and agitation and increased weakness over the past 1 day. Patient acknowledges that patient has been drinking alcohol heavily over the past several days. EMS was notified and upon arrival the patient was found to be in distress and subsequently transported to [facility] for further care and evaluation of the aforementioned symptoms. The patient was seen and evaluated in the emergency department. All lab and imaging studies reviewed. The patient was found to be confabulating, agitated, tremulous, hypertensive, diaphoretic. Patient found to have symptoms consistent with delirium tremens due to alcohol withdrawal. Patient was also found to have hy pertensive emergency with a blood pressure of 197/104 mmHg, hypertensive encephalopathy, metabolic acidosis. Patient admitted to telemetry due to increased risk of worsening symptoms for medical stabilization and initiated on CIWA protocol. Patient is confused and lethargic the time my evaluation but has a positive gag reflex and is able to protect his airway without difficulty. No reports of fever, chills, chest pain, palpitation or productive cough, skin rash, recent contact, known exposure to COVID-19. Prior mission on 04/11/2021 reviewed. All medication listed at time of admission has been reconciled. Advanced care planning conducted in ED. Past History Past Medical History: hypertension, hyperlipidemia, other (See HPI) Past Surgical History: CABG Social history: single, alcohol abuse. denies: smoking, prescription drug abuse Family history: diabetes, hypertension Medications and Allergies Allergies Allergy/AdvReac Type Severity Reaction Status Date / Time Penicillins Allergy Unknown Verified 04/11/21 03:34 Home Medications Medication Instructions Recorded Confirmed Last Taken Type Cyclobenzaprine [Flexeril 10 MG 10 mg PO HS PRN 04/11/21 04/11/21 Unknown History TAB] Losartan/Hydrochlorothiazide 1 each PO QDAY 04/11/21 04/11/21 Unknown History [Losartan-Hctz 100-25 mg Tab] NIFEdipine XL [Procardia Xl] 60 mg PO QDAY tablet 04/12/21 Unknown Rx NIFEdipine XL [Procardia Xl] 60 mg PO QDAY 30 Days #30 tablet 04/14/21 Unknown Rx Active Meds: Active Medications Sodium Chloride (Nacl 0.9% 1000 Ml) 1,000 mls @ 999 mls/hr IV BOLUS ONE Stop: 11/22/21 13:00 Review of Systems ROS unobtainable: due to mental status Exam - Constitutional Vitals: Temp Pulse Resp BP Pulse Ox 94 H 21 144/82 98 11/22/21 10:01 11/22/21 10:01 11/22/21 10:01 11/22/21 10:08 General appearance: Present: mild distress - EENT Eyes: Present: PERRL ENT: clear oral mucosa, hearing decreased - Neck Neck: Present: supple, normal ROM - Respiratory Respiratory effort: normal Respiratory: bilateral: diminished - Cardiovascular Heart Sounds: Present: S1 & S2. Absent: rub, click - Extremities Extremities: pulses symmetrical, No edema Peripheral Pulses: within normal limits - Abdominal General gastrointestinal: Present: soft, non-tender, non-distended - Integumentary Integumentary: Present: clear, dry - Musculoskeletal Musculoskeletal: generalized weakness - Psychiatric Psychiatric: agitated - Neurologic Neurologic: CNII-XII intact, no focal deficits, moves all extremities, no gait normal Results - Labs CBC & Chem 7: 11/22/21 07:10 11/22/21 07:10 Labs: Abnormal lab results 11/22/21 11/22/21 11/22/21 Range/Units 06:57 07:10 07:10 Seg Neutrophils % 77.0 H (40.0-70.0) % D-Dimer (0-234) ng/mlDDU Potassium 3.4 L (3.6-5.0) mmol/L Carbon Dioxide 17 L (22-30) mmol/L Glucose 111 H (75-100) mg/dL Lactic Acid (0.7-2.0) mmol/L Ur Specific [place] 1.035 H (1.003-1.030) Salicylates (2.8-20.0) mg/dL Acetaminophen (10.0-30.0) ug/mL 11/22/21 11/22/21 11/22/21 Range/Units 07:10 07:10 07:10 Seg Neutrophils % (40.0-70.0) % D-Dimer 459.08 H (0-234) ng/mlDDU Potassium (3.6-5.0) mmol/L Carbon Dioxide (22-30) mmol/L Glucose (75-100) mg/dL Lactic Acid 6.10 H* (0.7-2.0) mmol/L Ur Specific [place] (1.003-1.030) Salicylates < 0.3 L (2.8-20.0) mg/dL Acetaminophen (10.0-30.0) ug/mL 11/22/21 Range/Units 07:10 Seg Neutrophils % (40.0-70.0) % D-Dimer (0-234) ng/mlDDU Potassium (3.6-5.0) mmol/L Carbon Dioxide (22-30) mmol/L Glucose (75-100) mg/dL Lactic Acid (0.7-2.0) mmol/L Ur Specific [place] (1.003-1.030) Salicylates (2.8-20.0) mg/dL Acetaminophen 5.0 L (10.0-30.0) ug/mL Assessment and Plan - Patient Problems (1) Delirium tremens Current Visit: Yes Status: Acute Plan to address problem: Alcohol withdrawal protocol: CIWA protocol, banana bag, thiamine, folic acid, multivitamin daily, IV fluid resuscitation therapy, blood alcohol level, supportive care. (2) Hypertensive emergency Current Visit: Yes Status: Acute Plan to address problem: Monitor blood pressure every shift, continue medical management. IV hydralazine every 6 hours as needed for systolic blood pressure greater than or equal to 155 mmHg. (3) Hypertensive encephalopathy Current Visit: Yes Status: Acute Plan to address problem: CTA, neuro check, seizure precautions, blood pressure control, continue medical management. (4) Metabolic acidosis Current Visit: Yes Status: Acute Plan to address problem: IV fluid resuscitation therapy, BMP, repeat BMP in a.m. (5) DVT prophylaxis Current Visit: Yes Status: Acute Plan to address problem: SCD to bilateral lower extremities while in bed (6) Advance care planning Current Visit: Yes Status: Acute Plan to address problem: Disease education done, care plan discussed, diagnoses discussed, prognosis discussed, patient is full code. Patient acknowledges understanding and agreement with care plan, +30 minutes. (7) Preventative health care Current Visit: Yes Status: Acute Plan to address problem: Patient and family counseled regarding abstinence from alcohol. Recommend outpatient follow-up with Alcoholics Anonymous at time of discharge. Patient and encouraged to follow-up with primary care physician as outpatient for all age and risk factor appropriate screening test. +30 minutes.
[2021-11-22] MEDS ORDERED: THIAMINE 100 MG TAB PO NR (12:14)
[2021-11-22] MEDS ORDERED: MULTIVITAMINS ,THERAPEUTIC TAB PO NR (12:14)
[2021-11-22] MEDS ORDERED: HYDROmorphone 0.5 MG/0.5 ML INJ IV PRN (12:30)
[2021-11-22] MEDS ORDERED: ACETAMINOPHEN 325 MG TAB PO PRN (12:30)
[2021-11-22] MEDS ORDERED: LORazepam 2 MG/ML VIAL IV PRN (12:30)
[2021-11-22] MEDS ORDERED: THIAMINE 100 MG, FOLIC ACID 1 MG, MULTIPLE VITAMIN INJ, ADULT 10 ML in SODIUM CHLORIDE ... IV ONE (12:30)
[2021-11-22] MEDS ORDERED: ALBUTEROL 2.5 MG/3 ML NEBU IH PRN (12:30)
[2021-11-22] MEDS ORDERED: ONDANSETRON 4 MG/2 ML INJ IV PRN (12:30)
[2021-11-22] MEDS ORDERED: oxyCODONE /ACETAMINOPHEN 5-325MG TAB PO PRN (12:30)
--- NOTE | 2021-11-22 12:35 | Electrocardiograph Report ---
[facility] Test Date: 2021-11-22 Test Time: 09:41:43 Pat Name: ISAEL RIVAS Department: Room: Gender: M Partner Marketing Manager: ADRIAN : 1960 Requested By: KAMI CORONEL Order Number: [id number] Reading MD: Satish Pimentel Measurements Intervals [place] Rate: 104 P: ID: QRS: 34 QRSD: 85 T: 46 QT: 335 QTc: 441 Interpretive Statements Atrial fibrillation Consider left ventricular hypertrophy Anterior Q waves, possibly due to LVH Compared to ECG 04/12/2021 07:17:42 Atrial fibrillation has replaced sinus rhythm Electronically Signed On 11-22-2021 12:35:36 EDT by Satish Pimentel
[2021-11-22] MEDS ORDERED: SODIUM CHLORIDE 0.9% 1000 ML 1,000 ML IV SCH (13:00)
[2021-11-22] MEDS ORDERED: hydrALAZINE 20 MG/1 ML INJ IV PRN (18:31)
[2021-11-23 06:01] LABS: Basophils # (Auto) 0.1 K/mm3 (0.0-0.1); Basophils % (Auto) 0.8 % (0.0-1.8); Eosinophils % (Auto) 0.4 % (0.0-4.3); Hematocrit 42.5 % (35.5-45.6); Hemoglobin 14.3 gm/dl (11.8-15.2); Lymphocytes # (Auto) 1.8 K/mm3 (1.2-5.4); Lymphocytes % (Auto) 20.7 % (13.4-35.0); Mean Corpuscular HGB Conc 34 % (32-34); Mean Corpuscular Volume 91 fl (84-94); Monocytes # (Auto) 0.7 K/mm3 (0.0-0.8); Monocytes % (Auto) 7.7 % (0.0-7.3); Platelet Count 190 K/mm3 (140-440); Red Blood Count 4.68 M/mm3 (3.65-5.03); Red Cell Distribution Width 13.9 % (13.2-15.2)
[2021-11-23 06:14] LABS: BUN/Creatinine Ratio 11; Blood Urea Nitrogen 10 mg/dL (9-20); Calcium 9.1 mg/dL (8.4-10.2); Hemolysis Index 8
[2021-11-23] MEDS ORDERED: POTASSIUM CHLORIDE ER 20 MEQ TAB PO NR (08:00)
[2021-11-23] MEDS ORDERED: LOSARTAN 50 MG TAB PO SCH (10:00)
[2021-11-23] MEDS ORDERED: NIFEdipine XL 60 MG TAB PO SCH (10:00)
[2021-11-23] MEDS ORDERED: FOLIC ACID 1 MG TAB PO SCH (10:00)
[2021-11-23] MEDS ORDERED: hydroCHLOROthiazide 25 MG TAB PO SCH (10:00)
[2021-11-23] MEDS ORDERED: NON-FORMULARY EACH (Losartan/Hydrochlorothiazide [Losartan-Hctz 100-25 Mg Tab] 1 EACH Tabl PO SCH (10:00)
--- NOTE | 2021-11-23 10:21 | Discharge Summary ---
Providers - Providers Date of Admission: 11/22/21 12:09 Date of discharge: 11/23/21 Attending physician: ELMER REYNOLDS MD Primary care physician: GRINDER CHIPPER Hospitalization Reason for admission: Acute encephalopathy Condition: Stable Hospital course: Patient is a 61-year-old male history of hypertension, hyperlipidemia and coronary artery disease status post CABG he presented with confusion and agitation. He was admitted for hypertensive emergency and encephalopathy. CT of the head was negative for acute abnormality. CT angiogram of the chest was negative for PE and other abnormalities. Once stable, patient was discharged home with spouse. Disposition: 01 HOME / SELF CARE / HOMELESS Final Discharge Diagnosis (Prints w/discharge instructions): Hypertensive emergency. Hypertensive encephalopathy. Delirium tremens. Metabolic acidosis. Alcohol dependence Time spent for discharge: 40 minutes Core Measure Documentation - Palliative Care Palliative Care/ Comfort Measures: Not Applicable - Core Measures Any of the following diagnoses?: none Exam - Physical Exam Narrative exam: GENERAL: Well-developed well-nourished. In no acute distress. HEENT: Normocephalic. Atraumatic. CHEST/LUNGS: CTAB on room air HEART/CARDIOVASCULAR: RRR. No murmur, rubs or gallops appreciated. ABDOMEN: +BS. NT/ND. NEURO: No focal motor deficit. Follows all commands. MUSCULOSKELETAL: No joint effusion EXTREMITIES: No cyanosis, clubbing or edema. PSYCH: Cooperative. - Constitutional Vitals: Temp Pulse Resp BP Pulse Ox 98.2 F 84 20 170/101 97 11/23/21 06:10 11/23/21 09:54 11/23/21 06:10 11/23/21 09:54 11/23/21 08:51 Plan Care Plan Goals: Take all medications as prescribed. Your imaging laboratory studies were all unremarkable this time and could not explain your initial symptoms. Please follow-up with the registration scheduling specialist and neurologist as suggested at outside hospital. Follow up with: PRIMARY MD TONEY [Primary Care Provider] - 3-5 Days Prescriptions: Folic Acid [Folvite] 1 mg PO QDAY 30 Days #30 tablet
[2021-11-23 13:20] VITALS: BP 170/94
== END 2021-11-23 16:44 | disposition home or self-care (01) ==
LOC: ED 05:18 → INTOOBSV 12:09 → 3A 12:09
PROVIDERS: ADMIT Internal Medicine; ATTEND Student in an Organized Health Care Education/Training Program
DX: I16.1 Hypertensive emergency (principal); I67.4 Hypertensive encephalopathy; F10.231 Alcohol dependence with withdrawal delirium; I10 Essential (primary) hypertension; I25.10 Atherosclerotic heart disease of native coronary artery without angina pectoris; E87.2 Acidosis; E78.5 Hyperlipidemia, unspecified; M54.9 Dorsalgia, unspecified; G89.29 Other chronic pain; Z95.1 Presence of aortocoronary bypass graft; Z79.899 Other long term (current) drug therapy; Z98.890 Other specified postprocedural states; Y90.9 Presence of alcohol in blood, level not specified
CPT/HCPCS: 36415; 70450; 71045; 71275; 80048; 80053; 80307; 81001; 82140; 85025; 85379; 87591; 93005; 96361; 96365; 96366; 96372; 96375; 96376; 99285; G0378; J0360; J1200; J1630; J2060; J3411; J3490; J7030; Q9967; 80320; G0480

== ENCOUNTER 2022-03-16 19:51 | Emergency (ER) | payer OTHER ==
[2022-03-16 20:02] VITALS: BP 118/74
[2022-03-16 22:41] LABS: Mean Corpuscular HGB Conc 33 % (32-34); Mean Corpuscular Volume 91 fl (84-94); Platelet Count 228 K/mm3 (140-440); Red Blood Count 5.05 M/mm3 (3.65-5.03)
[2022-03-16 23:04] LABS: Alanine Aminotransferase 9 units/L (7-56); Albumin 4.4 g/dL (3.9-5); BUN/Creatinine Ratio 17; Blood Urea Nitrogen 25 mg/dL (9-20); Calcium 9.7 mg/dL (8.4-10.2); Hemolysis Index 14
[2022-03-17 00:41] LABS: Total Cells Counted 100
[2022-03-17 00:42] LABS: Basophils % (Manual) 0 % (0.0-1.8); Eosinophils % (Manual) 0 % (0.0-4.3); Platelet Estimate Consistent w Auto
--- NOTE | 2022-03-17 11:41 | Electrocardiograph Report ---
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
== END 2022-03-17 00:30 | disposition left against medical advice (07) ==
LOC: ED 19:51
DX: R07.89 Other chest pain (principal); Z53.21 Procedure and treatment not carried out due to patient leaving prior to being seen by health care provider
CPT/HCPCS: 36415; 80053; 84484; 85007; 85025; 93005